=== PATIENT | male | born 1960 | race Caucasian/White ===

== ENCOUNTER → 2018-08-01 08:41 | Outpatient (CLI) | payer MEDICARE, SELFPAY ==
[2018-08-01 09:02] LABS: Blood Urea Nitrogen 15 mg/dL (7-18); Creatinine,Serum 0.92 mg/dL (0.70-1.30); Estimated Glomerular Filt Rate 84 ml/min (>60); GFR (African American) 102 ML/MIN (>60)
--- NOTE | 2018-08-01 09:09 | CT_ITS ---
CT chest w con HISTORY: ITS.REASON: LUNG NODULE ORDERING PHYSICIAN: Baljit Lao MD PATIENT AGE: 57 years COMPARISON: None TECHNIQUE: Axial images obtained following the administration of 75 mL of Isovue 370 . Sagittal, and coronal reformatted images are also generated and reviewed. All CT scans at the facility use one or more dose reduction, viz: automated exposure control, ma/kV adjustment per patient size (including targeted exams where dose is matched to indication, i.e. head), or iterative reconstruction technique. FINDINGS: No mediastinal or hilar mass or adenopathy. There are coronary artery calcifications. Normal heart size. No evidence of pericardial effusion. There is an oval soft tissue density to the right of the right atrium at 1.8 x 0.9 cm consistent with a small pericardial lymph node. Incidental note made of gynecomastia. There is an 8 mm noncalcified nodule in the right lung base posterior laterally which is unchanged from a previous abdomen CT of 03/16/2011. A 4 mm noncalcified nodule present in the left lower lobe laterally unchanged. No new nodules are evident. No evidence of aortic aneurysm or dissection. No evidence of central pulmonary embolus. No lobar consolidation or collapse Upper abdominal images are unremarkable. IMPRESSION: 1. Stable bilateral lower lobe pulmonary nodules. No suspicious nodules apparent 2. Coronary artery disease.
== END ==
PROVIDERS: Family Provider Family Medicine; PCP Family Medicine; Visit Provider Family Medicine
DX: R91.1 Solitary pulmonary nodule (principal)
CPT/HCPCS: 36415; 71260; 82565; 84520; Q9967

== ENCOUNTER → 2018-09-16 19:38 | Outpatient (CLI) | payer MEDICARE, SELFPAY | PROVIDERS: PCP Family Medicine; Visit Provider Nurse Practitioner Family | DX: G47.33 Obstructive sleep apnea (adult) (pediatric) (principal); G47.10 Hypersomnia, unspecified; I10 Essential (primary) hypertension; R06.83 Snoring | CPT/HCPCS: 95811 ==

== ENCOUNTER → 2019-04-20 09:34 | Outpatient (CLI) | payer MEDICARE, SELFPAY ==
[2019-04-20 12:16] LABS: Ferritin 20 ng/mL (8-388)
== END ==
PROVIDERS: Visit Provider Specialist
DX: E83.10 Disorder of iron metabolism, unspecified (principal)
CPT/HCPCS: 36415; 82728

== ENCOUNTER → 2019-08-13 07:01 | Outpatient (CLI) | payer MEDICARE, SELFPAY ==
--- NOTE | 2019-08-13 | CA_ITS ---
APPROVED REPORT Exam: Exercise Treadmill Technologist: Deana Winters Ht: 5 ft 9 in Wt: 234 lbs BSA: 2.21 m2 HR: 53 bpm BP: 153/69 mmHg Rhythm: sinus bradycardia Indications: Chest pain Medical History Medical History: Diabetic ??? Insulin, Hyperlipidemia, HTN Medications: Metoprolol,,,,, Metformin,,,,, Gabapentin,,,,, Mirapex,,,,, Glimepiride,,,,, Lasix,,,,, Lipitor,,,,, PaXIL,,,,, Prevacid,,,,, SuLindar,,,,, Allergies: Morphine,Tolmetin Cardiac Risk Factors: HTN, Hyperlipidemia, Diabetes (insulin), FHX of CAD Stress Test Details Test: Yoana HR Resting HR: 64 bpm Max Heart Rate (APMHR): 160 bpm Max HR Achieved: 125 bpm Target HR (85% APMHR): 136 bpm % of APMHR: 78 Recovery HR: 103 bpm BP Resting BP: 153.0/69.0 mmHg Max BP: 192.0/75.0 mmHg Recovery BP: 178.0/76.0 mmHg ECG Resting ECG: sinus bradycardia Clinical Exercise duration: 09:30 min Highest Stage Achieved: Exercise capacity: 10.1 METs Stress ECG Conclusion PATIENT EXERCISED 9:30 ON YOANA PROTOCOL WITH A MAX HEART RATE OF 125 BPM WHICH IS 78% OF PM FOR AGE. MAX BP 192/75. METS = 10.1. TEST STOPPED DUE TO SOA AND FATIGUE. CHEST HEAVINESS CONSISTENT WITH CLASSIC ANGINA DURING EXERCISE. NO ARRHYTHMIAS/ECTOPY. 1.5-[address] DEPRESSION ANTERIORLY AND 1MM INFERIORLY. EXERCISE INDUCED ANGINA AND ISCHEMIC EKG CHANGES. MYOVIEW IMAGES REPORTED SEPARATELY. Electronically signed by : Tony Almendarez, 08/13/2019 16:22:21
--- NOTE | 2019-08-13 07:08 | NM_ITS ---
APPROVED REPORT Exam: Nuclear Stress Test Indication: chest pain Patient Location: Outpatient Stress Tech: Deana Winters ME Tech:GAVINO Travis RT(R)(N) Ht: 5 ft 9 in Wt: 234 lbs HR: 53 bpm BP: 153/69 mmHg BSA: 2.21 m2 BMI: 34.5 History: chest pain Procedure: Patient exercised on Judd protocol 9:30 minutes and sec, resting heart rate 53 bpm, resting blood pressure 153/69 mmHg, with exercise maximum heart rate achived was 125 bpm which is 78 % of the maximum predicted heart rate and blood pressure was 192/75 mmHg. Test was stopped due to Chest heaviness consistent with angina relieved with rest.. Patient has Good exercise capacity, achieved 10.1 METs of workload on treadmill, the blood pressure response to exercise was Adequate.. Electrocardiogram Resting electric cardiogram shows sinus rhythm, with exercise there is [address] segment depression noted from the baseline EKG. The EKG portion of the exercise Myoview is positive for ischemia. Cardiac Stress and Resting SPECT Images: Cardiac Stress and Resting SPECT images were obtained using technetium 99m Myoview 30.4 mCi stress and 10.04 mCi at rest. Gated SPECT with analysis of segmental wall motion and calculation of the ejection fraction also done. Cardiac stress and resting SPECT images showed reversible ischemia involving the apical and anteroseptal wall, computer derived ejection fraction is over 65% with no regional wall motion abnormality, right ventricle is normal size and contractility. Conclusion: 1. The EKG portion of the exercise Myoview is positive for ischemia, patient has good exercise capacity achieved 10.1 mets of workload on treadmill, the blood pressure response to exercise was adequate, test was stopped due to chest heaviness consistent with angina. 2. Scintigraphic evidence of mild reversible ischemia involving the apex and anteroseptal wall, computer derived ejection fraction is over 65% with no regional wall motion abnormality, right ventricle is normal size and contractility. 3. Abnormal exercise Myoview study. Electronically signed by : Tony Almendarez, 08/13/2019 16:21:41
--- NOTE | 2019-08-13 07:52 | CA_ITS ---
APPROVED REPORT EXAM: Comprehensive 2D, Doppler, and color-flow Echocardiogram Floor Renovator: Tita Pickard RDCS Ht: 5 ft 9 in Wt: 246lbs BSA: 2.26 BP: 131/57 mmHg Indications: Chest Pain 2D Dimensions LVOT 1.90 cm (M/F) 1.5-2.5 M-Mode Dimensions RVDd 2.20 cm (0.9-2.6) LA Diam 3.10 cm (1.9-4.0) LVDd 5.60 cm (3.5-5.7) Ao Diam 4.10 cm (2.0-3.7) LVDs 3.10 cm (3.5-5.7) AV Cusp 2.10 cm (1.5-2.6) IVSd 0.80 cm (0.6-1.1) PWd 1.10 cm (0.6-1.1) EF (Teich) 75.40% FS 44.60% EDV (Teich) 154.00 mL ESV (Teich) 37.90 mL LV Diastology E/A Ratio 1.1 MED E' 5.65 (< 7 cm/sec) E'/MED E' Ratio 15.30 (>14) LAT E' 13.40 (<10 cm/sec) E/LAT E' Ratio 6.40 (>14) Mitral Valve MV E Max Clayton. 86.40 (40-130 cm/s) MV A Velocity 79.00 (40-130 cm/s) E/A Ratio 1.10 Left Ventricle Left atrium is normal size, left ventricle is normal size, there is no concentric left ventricular hypertrophy, visually estimated ejection fraction 55% with no regional wall motion abnormality, diastolic parameters are within normal range. Right Ventricle Right atrium and right ventricular normal size and contractility. Aortic Valve Aortic valve is minimally thickened and fibrosed. There is no aortic stenosis aortic insufficiency. Mitral Valve Mitral valve is grossly normal, there is mild mitral regurgitation. Tricuspid Valve Tricuspid valve is grossly normal, there is mild tricuspid regurgitation. Pulmonic Valve Pulmonic valve is poorly visualized. Great Vessels Aortic root is normal size. Pericardium No significant pericardial effusion noted. Conclusion 1. Normal left ventricular size, preserved left ventricular systolic function, visually estimated ejection fraction 55% with no regional wall motion abnormality, diastolic parameters are within normal range. 2. Mild mitral and tricuspid regurgitation 3. No significant pericardial effusion noted. Electronically signed by : Tony Almendarez, 08/13/2019 15:42:45
--- NOTE | 2019-08-13 09:28 | HMH.ITSHM ---
Current Home Medications as stated by this patient Jose Newell JR or inside account representative. [] metoprolol pazil mirapex lipitor metformin
--- NOTE | 2019-08-13 09:41 | US_ITS ---
PROCEDURE: US BREAST LT COMPLETE CLINICAL INDICATION: LT BREAST PAIN COMPARISON: No exams were available for comparison FINDINGS: No cystic or solid lesions evident IMPRESSION: BI-RAD Category: 1 Negative FOLLOW-UP: Follow-up suggested as clinically warranted Dictated by: Geoffrey Escobedo MD 08/21/2019 09:34 Electronically signed by Geoffrey Escobedo MD in [place] 08/21/2019 09:34
== END ==
PROVIDERS: PCP Family Medicine; Visit Provider Nurse Practitioner
DX: R07.9 Chest pain, unspecified (principal); N64.4 Mastodynia
CPT/HCPCS: 76641; 78452; 93017; 93306; A9502

== ENCOUNTER 2019-08-25 09:47 | Outpatient (RCR) | payer MEDICARE, SELFPAY | END 2019-08-25 09:50 | disposition home or self-care (01) | LOC: PT 09:47 | PROVIDERS: Visit Provider Internal Medicine | DX: Z95.5 Presence of coronary angioplasty implant and graft (principal) | CPT/HCPCS: 93798 ==

== ENCOUNTER → 2019-08-25 11:13 | Outpatient (CLI) | payer MEDICARE, SELFPAY ==
[2019-08-25 11:37] LABS: Basophils # 0.1 K/mm3 (0-0.2); Basophils % 1.2 % (0.1-2.0); Eosinophils # 0.4 K/mm3 (0.0-0.4); Hematocrit 46.5 % (42.0-52.0); Lymphocytes # 1.9 K/mm3 (0.7-4.5); Lymphocytes % 25.9 % (10-50); Mean Corpuscular HGB Conc 32.2 g/dL (31.8-35.4); Mean Corpuscular Hemoglobin 27.6 pg (27.0-31.2); Mean Corpuscular Volume 85.7 fl (80-94); Mean Platelet Volume 8.5 fl (7.4-10.4); Monocytes # 0.5 K/mm3 (0.1-1.0); Monocytes % 6.5 % (1.7-9.3); Neutrophils # 4.4 K/mm3 (1.8-7.8); Neutrophils % 61.4 % (37.0-80.0); Platelet Count 214 K/mm3 (142-424); Red Blood Count 5.42 M/mm3 (4.60-6.20); Red Cell Distribution Width 13.9 % (11.5-17.5); White Blood Count 7.2 K/mm3 (4.8-10.8)
[2019-08-25 16:04] LABS: Blood Urea Nitrogen 15 mg/dL (7-18); Carbon Dioxide 27 mmol/L (21.0-32.0); Chloride 104 mmol/L (98-107); Creatinine,Serum 0.83 mg/dL (0.70-1.30); Estimated Glomerular Filt Rate 95 ml/min (>60); GFR (African American) 114 ML/MIN (>60); Glucose 115 mg/dL (74-106); Sodium 143 mmol/L (136-145)
== END ==
PROVIDERS: Visit Provider Internal Medicine
DX: Z95.5 Presence of coronary angioplasty implant and graft (principal); I25.10 Atherosclerotic heart disease of native coronary artery without angina pectoris
CPT/HCPCS: 36415; 80048; 85025

== ENCOUNTER → 2020-04-14 13:28 | Outpatient (CLI) | payer MEDICARE, SELFPAY ==
--- NOTE | 2020-04-14 13:36 | MR_ITS ---
PROCEDURE: MR LUMBAR SPINE WO CON CLINICAL INDICATION: LEFT LUMBAR RADICULOPATHY Left-sided low back pain with left leg pain COMPARISON: No exams were available for comparison TECHNIQUE: Standard multiplanar multiecho sequences are performed without contrast. 3-D MIP and myelographic images are also rendered and reviewed FINDINGS: There is normal alignment with mild kyphosis at the thoracolumbar spine. The spinal cord ends at the L1-L2 level. T11-T12: Degenerative disc disease with minimal bulging disc. There is mild wedge changes of T12 which appears chronic T12-L1: Mild disc desiccation L1-L2: Minimal bulging disc. L2-L3: Degenerative disc disease with bulging disc along with facet and ligamentum hypertrophy. There is a a small central broad-based disc protrusion with facet and ligamentum hypertrophy with resultant canal stenosis, bilateral lateral recess narrowing, and bilateral foraminal narrowing L3-L4: Degenerative disc disease with bulging disc along with a broad-based central/left paracentral disc protrusion which is causing moderate to severe right-sided lateral recess and foraminal narrowing. There may have been a small laminectomy on the left at this level L4-5: Degenerative disc disease with bulging disc with small central disc protrusion. There is facet ligamentum hypertrophy which is more prominent on the left with moderate left lateral recess and moderate to severe left-sided foraminal narrowing. L5-S1: Degenerative disc disease with bulging disc with facet and ligamentum hypertrophy. Prior right laminectomy. There is bulging disc which is eccentric toward the left with moderate right foraminal narrowing and moderate to severe left foraminal narrowing IMPRESSION: Abnormal MRI of the lumbar spine. There is multilevel lumbar spondylosis with degenerative disc disease, bulging disc, disc protrusions, facet and ligamentum hypertrophy with canal stenosis, varying levels of lateral recess narrowing, and varying levels of foraminal narrowing. Please see above for detailed description at each level Dictated by: Geoffrey Escobedo MD 04/16/2020 12:41 Electronically signed by Geoffrey Escobedo MD in [place] 04/16/2020 12:41
== END ==
LOC: RAD 13:28
PROVIDERS: PCP Family Medicine; Visit Provider Family Medicine
DX: M54.16 Radiculopathy, lumbar region (principal)
CPT/HCPCS: 72148; 76376

== ENCOUNTER 2020-04-19 00:59 | Emergency (ER) | payer MEDICARE, SELFPAY ==
--- NOTE | 2020-04-19 01:12 | ECG_ITS ---
APPROVED REPORT Exam: Resting ECG HR:77 bpm ECG Measurements Heart Rate 77 AXES OK 154 P 66 QRSd 90 QRS 71 QT 408 T 66 QTc 461 <Conclusion> Normal sinus rhythm Normal ECG Electronically signed by : Tenzin Joshua, 04/20/2020 17:09:35
[2020-04-19 01:14] VITALS: BP 130/79; PULSE 80; RESP 15; TEMP 36.6; O2SAT 95; BMI 34.5
[2020-04-19 01:29] LABS: Basophils # 0.1 K/mm3 (0-0.2); Basophils % 1.2 % (0.1-2.0); Eosinophils # 0.4 K/mm3 (0.0-0.4); Eosinophils % 3.7 % (0.1-12.0); Hematocrit 47.5 % (42.0-52.0); Lymphocytes % 20.4 % (10-50); Mean Corpuscular HGB Conc 33.8 g/dL (31.8-35.4); Mean Corpuscular Hemoglobin 28.9 pg (27.0-31.2); Mean Corpuscular Volume 85.5 fl (80-94); Mean Platelet Volume 7.7 fl (7.4-10.4); Monocytes # 0.5 K/mm3 (0.1-1.0); Monocytes % 5.5 % (1.7-9.3); Neutrophils # 6.7 K/mm3 (1.8-7.8); Neutrophils % 69.1 % (37.0-80.0); Platelet Count 195 K/mm3 (142-424); Red Blood Count 5.55 M/mm3 (4.60-6.20); Red Cell Distribution Width 14.1 % (11.5-17.5); White Blood Count 9.7 K/mm3 (4.8-10.8)
--- NOTE | 2020-04-19 01:34 | HMH.EDUPEXT ---
ED Disposition Clinical Impression: Upper extremity pain Qualifiers: Laterality: left Qualified Code(s): M79.602 - Pain in left arm Disposition: Home, Self-Care Condition on Discharge: Good Instructions: DI for Chronic Pain -- Adult Additional Instructions: call pcp today and recheck if needed Referrals: Baljit Lao MD [Primary Care Provider] - - Critical Care Critical Care Time: No Attestation: On 04/19/20, the high probability of a clinically significant, sudden or life threatening deterioration of the following system(s) required my full and direct attention, intervention and personal management. The time I documented below is in addition to time spent performing reported procedures but includes the following listed in this critical care notation. Medical Decision Making - Medical Records Medical records reviewed: Yes: I reviewed the patient's medical records. - Jori Inquiry Pt receiving controlled substance: No Vital Signs: 04/19/20 01:14 04/19/20 02:00 04/19/20 02:30 Temperature 97.9 F 97.9 F Temperature Source Oral Oral Pulse Rate [Right Brachial] 80 73 63 Respiratory Rate 15 15 14 Blood Pressure [Right Arm] 130/79 125/71 139/80 Blood Pressure Mean [Right Arm] 96 89 99 Blood Pressure Source [Right Arm] Automatic Cuff Automatic Cuff Automatic Cuff Blood Pressure Position [Right Arm] Sitting Sitting Sitting 02 Sat by Pulse Oximetry 95 95 94 L Oxygen Delivery Method Room Air Room Air Room Air 04/19/20 03:00 Temperature Temperature Source Pulse Rate [Right Brachial] 67 Respiratory Rate 14 Blood Pressure [Right Arm] 126/75 Blood Pressure Mean [Right Arm] 92 Blood Pressure Source [Right Arm] Automatic Cuff Blood Pressure Position [Right Arm] Sitting 02 Sat by Pulse Oximetry 95 Oxygen Delivery Method Room Air - Lab Data Lab results reviewed: Yes: I reviewed the patient's lab results. Lab Results 04/19/20 01:18: WBC 9.7, RBC 5.55, Hgb 16.0, Hct 47.5, MCV 85.5, MCH 28.9, MCHC 33.8, RDW 14.1, Plt Count 195, MPV 7.7, Neut % (Auto) 69.1, Lymph % (Auto) 20.4, Clare % (Auto) 5.5, Eos % (Auto) 3.7, Baso % (Auto) 1.2, Neut # (Auto) 6.7, Lymph # (Auto) 2.0, Clare # (Auto) 0.5, Eos # (Auto) 0.4, Baso # (Auto) 0.1 04/19/20 01:18: Sodium 138, Potassium 4.4, Chloride 99, Carbon Dioxide 29, Anion Gap 14.4, BUN 13, Creatinine 0.90, Estimated Creat Clear 116, Estimated GFR 86, Est GFR ( Amer) 104, Glucose 162 H, Calcium 9.8, Total Bilirubin 0.5, AST 38, ALT 27, Alkaline Phosphatase 108, Troponin I < 0.01, Total Protein 8.0, Albumin 4.8, Globulin 3.2, Albumin/Globulin Ratio 1.5 Result diagrams: 04/19/20 01:18 04/19/20 01:18 Orders (Tests/Meds): ED MEDICATIONS Discontinued Medications Generic Name Dose Route Start Last Admin Trade Name Freq PRN Reason Stop Dose Admin Ketorolac Tromethamine 15 mg 04/19/20 02:14 04/19/20 02:24 Toradol 30mg/Ml Vial IV 04/19/20 02:15 15 mg ONCE ONE Administration Methylprednisolone Sodium Succinate 125 mg 04/19/20 01:35 04/19/20 01:41 Solu-Medrol 125mg/2ml Vial IV 04/19/20 01:36 125 mg ONCE ONE Administration ORDERS Category Date Time Status Troponin I Q3H Lab 04/19/20 04:30 Ordered Troponin I Q3H Lab 04/19/20 07:30 Ordered - ECG Data Tracing #1 Normal Sinus Rhythm: Yes Ischemic changes: non-specific ST-T wave changes Upper Extremity HPI - General Chief Complaint: Extremity Injury, Upper Stated Complaint: Numbness in Left Arm Time Seen by Provider: 04/19/20 01:25 Mode of Arrival: Ambulatory Source of Information: Patient, Spouse, Medical Record Limitations: No Limitations Description of Symptoms (Recalled from ER Triage Doc. by RN): Patient reports right arm pain with some numbness that started saturday. Patient denies any known injury but reports he did have a bad sun burn on that arm that blistered. - History of Present Illness HPI narrative: lt elbow pain with rad to forearm with no rash
[2020-04-19 01:41] LABS: Alanine Aminotransferase 27 U/L (12-78); Albumin Level 4.8 g/dl (3.5-5.0); Albumin/Globulin Ratio 1.5 (1.1-1.8); Alkaline Phosphatase 108 U/L (38-126); Anion Gap 14.4 mEq/L (5-15); Aspartate Amino Transferase 38 U/L (17-59); Bilirubin,Total 0.5 mg/dl (0.2-1.3); Blood Urea Nitrogen 13 mg/dl (9-20); Calcium 9.8 mg/dl (8.4-10.2); Carbon Dioxide 29 mmol/L (22.0-30.0); Chloride 99 mmol/L (98-107); Creatinine Clearance Estimated 116 mL/min (50-200); Estimated Glomerular Filt Rate 86 ml/min (>60); GFR (African American) 104 ML/MIN (>60); Globulin 3.2 g/dL (1.3-3.2); Glucose 162 mg/dl (74-100); Potassium 4.4 mmoL/L (3.5-5.1); Sodium 138 mmol/L (136-145)
[2020-04-19 02:00] VITALS: BP 125/71; PULSE 73; RESP 15; TEMP 36.6; O2SAT 95
[2020-04-19 02:23] LABS: Troponin I < 0.01 ng/ml (0.00-0.034)
[2020-04-19 02:30] VITALS: BP 139/80; PULSE 63; RESP 14; O2SAT 94
[2020-04-19 03:00] VITALS: BP 126/75; PULSE 67; RESP 14; O2SAT 95
[2020-04-19 03:35] VITALS: BP 125/74; PULSE 65; RESP 15; TEMP 36.6; O2SAT 93
== END 2020-04-19 03:53 | disposition home or self-care (01) ==
PROVIDERS: Emergency Provider Emergency Medicine; PCP Family Medicine
DX: M79.602 Pain in left arm (principal); E78.5 Hyperlipidemia, unspecified; I10 Essential (primary) hypertension; F33.1 Major depressive disorder, recurrent, moderate; Z87.891 Personal history of nicotine dependence; Z82.49 Family history of ischemic heart disease and other diseases of the circulatory system; Z86.718 Personal history of other venous thrombosis and embolism; Z88.5 Allergy status to narcotic agent; Z79.899 Other long term (current) drug therapy
CPT/HCPCS: 80053; 84484; 85025; 93005; 96374; 96375; 99283

== ENCOUNTER → 2020-07-18 09:51 | Outpatient (POV) | payer MEDICARE, SELFPAY ==
[2020-07-18 09:59] VITALS: BP 135/88; PULSE 62; RESP 18; TEMP 36.7; O2SAT 98; BMI 34.9
--- NOTE | 2020-07-18 10:38 | HMH.PMCON ---
Assessment and Plan (1) Postlaminectomy syndrome Current visit: Yes Status: Chronic Category: Medical Code(s): M96.1 - Postlaminectomy syndrome, not elsewhere classified (2) Degenerative joint disease (DJD) of lumbar spine Current visit: Yes Status: Chronic Qualifiers: Spinal osteoarthritis complication: with radiculopathy Qualified Code(s): M47.26 - Other spondylosis with radiculopathy, lumbar region Category: Medical Code(s): M47.816 - Spondylosis without myelopathy or radiculopathy, lumbar region - Assessment and plan all Dx Assessment and Plan for all problems:: We will get the patient a back brace to help with stability and functionality until he is seen by his surgeon. At this time any kind of intervention that we do may delay his surgery. We do not want to do that moving forward we will have the patient is an established patient if he needs any interventional care post surgery we will be happy to provide. Dr. Novak has reviewed this note and agrees with this plan of care. This note was dictated using voice recognition software and may contain errors or omissions HPI - Data of Consult Consult date: 07/18/20 Requesting Physician: Hannah Piña APRN Primary Care Provider: Baljit Lao MD - Consult Narrative Reason for consult: Back pain, left leg pain History of present illness: Mr. Newell is a 59 year old male presents today for consultation regards to his left leg and back pain. Patient is on the list to have surgery for his low back pain he is currently doing his physical and blood work to be cleared for this. Patient has had 4 additional lumbar spine surgeries. Patient has had epidural injections in the past with good relief however at this time he is on Brilinta. Patient and I discussed we could move forward with epidural injections however it may delay his surgery. Patient does not want to do that at this time. Patient rates his pain today at 8 out of 10. He is currently on [place] from his surgeon. CC: Hannah Piña APRN [facility] History I have reviewed the patient's past medical history: Yes Medical History: Reports:: Deep Vein Thrombosis, Depression, Diabetes Mellitus Type 2, Hyperlipidemia, Hypertension Denies:: Cancer, Diabetes Mellitus Type 1, MRSA, Seizures *Have you ever received a pneumonia vaccine?: Yes *Have you received a flu vaccine this season?: Yes Other Medical History: Reports: Arthritis, Cataracts, Other Other Surgeries: Yes: Cardiac Catheterization, Colonoscopy, Coronary Stent Amputation: No - *Social History Smoking Status: Unknown if ever smoked Tobacco Type: cigarettes # Packs/Day (cigarettes): 1 #Yrs smoked (if former smoker): 23 Alcohol Intake: never Alcohol Intake Frequency:: other Substance Use Type: denies use *Occupational Status:: retired Housing: house Household Members: other *Travel in the last 8 weeks: None - Psychiatric History Pschychiatric History:: Reports:: Depression Family Hx:: Coronary Artery Disease Review of Systems - Review of Systems ROS General: no recent weight change, no fever, no sleep disturbances Respiratory: no cough, no shortness of air, no recurring pulmonary infections Cardiovascular/Peripheral Vascular: No chest pain, No palpitations, no edema, no shortness of breath. Gastrointestinal: no new onset incontinence, normal bowel movements reported Genitourinary: no new onset incontinence Musculoskeletal: Back pain, left leg pain Psychiatric: normal mood/ affect Neurological: [denies new onset weakness in extremities], [denies new onset balance issues] Meds Home Medications Medication Instructions Recorded Confirmed Type albuterol sulfate 90 mcg/actuation INHALATION 75 Days g 08/12/18 04/27/20 History aerosol inhaler atorvastatin 80 mg tablet 80 mg PO DAILY 90 Days #90 tab 08/12/18 04/27/20 History glimepiride 4 mg tablet 8 mg PO DAILY 90 Days #180 tab 08/12/18 04/27/20 History
[2020-07-18 11:14] LABS: Basophils # 0.1 K/mm3 (0-0.2); Eosinophils # 0.4 K/mm3 (0.0-0.4); Eosinophils % 4.2 % (0.1-12.0); Hematocrit 46.9 % (42.0-52.0); Hemoglobin 15.7 g/dL (14.1-18.0); Lymphocytes # 2.4 K/mm3 (0.7-4.5); Lymphocytes % 25.9 % (10-50); Mean Corpuscular HGB Conc 33.6 g/dL (31.8-35.4); Mean Corpuscular Hemoglobin 28.9 pg (27.0-31.2); Mean Corpuscular Volume 85.9 fl (80-94); Mean Platelet Volume 8.2 fl (7.4-10.4); Monocytes # 0.5 K/mm3 (0.1-1.0); Monocytes % 5.5 % (1.7-9.3); Neutrophils % 63.5 % (37.0-80.0); Platelet Count 201 K/mm3 (142-424); Red Blood Count 5.45 M/mm3 (4.60-6.20); Red Cell Distribution Width 13.8 % (11.5-17.5); White Blood Count 9.4 K/mm3 (4.8-10.8)
[2020-07-18 11:42] LABS: Chloride 99 mmol/L (98-107)
[2020-07-18 11:43] LABS: Albumin Level 4.1 g/dl (3.5-5.0); Potassium 4.6 mmoL/L (3.5-5.1); Sodium 135 mmol/L (136-145)
[2020-07-18 11:45] LABS: Blood Urea Nitrogen 20 mg/dl (9-20); Creatinine Clearance Estimated 114 mL/min (50-200); Estimated Glomerular Filt Rate 98 ml/min (>60); GFR (African American) 119 ML/MIN (>60)
[2020-07-18 11:46] LABS: Anion Gap 11.6 mEq/L (5-15); Calcium 9.3 mg/dl (8.4-10.2); Carbon Dioxide 29 mmol/L (22.0-30.0); Glucose 87 mg/dl (74-100); Phosphorous 4.4 mg/dl (2.5-4.5)
== END ==
PROVIDERS: PCP Family Medicine; Visit Provider Neurological Surgery
DX: M96.1 Postlaminectomy syndrome, not elsewhere classified (principal); M47.26 Other spondylosis with radiculopathy, lumbar region; M51.26 Other intervertebral disc displacement, lumbar region
CPT/HCPCS: 36415; 80069; 85025; 99202

== ENCOUNTER 2021-05-15 09:23 | Emergency (ER) | payer MEDICARE, SELFPAY ==
[2021-05-15 09:23] VITALS: BP 120/71; PULSE 85; RESP 18; TEMP 37; O2SAT 97; BMI 34.7
[2021-05-15 09:38] VITALS: BMI 34.7
--- NOTE | 2021-05-15 09:43 | HMH.EDFEV ---
ED Disposition Clinical Impression: Bronchitis Disposition: Home, Self-Care Condition on Discharge: Good Additional Instructions: Take [id number] Tylenol and/or ibuprofen as needed for aches and pains and fever. Your COVID-19 test is still pending. If your tests turns out to be positive for COVID-19 we will call you. If you do not receive a call you test was negative. Follow-up with your primary care physician in about 3 to 4 days if not better. Return to the emergency department if you feel any worse. Referrals: Baljit Lao MD [Primary Care Provider] - - Critical Care Critical Care Time: No Attestation: On 05/15/21, the high probability of a clinically significant, sudden or life threatening deterioration of the following system(s) required my full and direct attention, intervention and personal management. The time I documented below is in addition to time spent performing reported procedures but includes the following listed in this critical care notation. Medical Decision Making - Medical Records Medical records reviewed: Yes: I reviewed the patient's medical records. - Jori Inquiry Pt receiving controlled substance: No Vital Signs: 05/15/21 09:23 05/15/21 10:56 05/15/21 11:00 Temperature 98.6 F 98.1 F Temperature Source Oral Pulse Rate 53 L 51 L Pulse Rate [Right] 85 Respiratory Rate 18 18 18 Blood Pressure 108/58 L 115/71 Blood Pressure [Right Arm] 120/71 Blood Pressure Mean [Right Arm] 87 Blood Pressure Source Manual Cuff/ Auscultation 02 Sat by Pulse Oximetry 97 97 Oxygen Delivery Method Room Air Room Air Room Air - Radiology Data #1 Image(s): Chest Image Reviewed: Yes I reviewed the patient's radiology results, Yes I have reviewed radiologist's interpretation Preliminary Findings: Normal/NAD Medical Decision Narrative: The patient presents to the emergency department complaining of productive cough that has lasted about 1 week. He is not immunized against COVID-19. He denies any severe shortness of breath. His vital signs are unremarkable. His chest x-ray does not show any acute infiltrates. On physical examination the patient is afebrile with normal oxygen saturations. A COVID-19 test has been performed and the results are pending. I feel that the patient can be safely discharged home in stable condition. The patient's work-up in the emergency department not reveal any life-threatening or dangerous conditions. Fever HPI - General Chief Complaint: Fever Stated Complaint: fever, cough, sinus pressure Time Seen by Provider: 05/15/21 09:44 Mode of Arrival: Ambulatory - History of Present Illness HPI Narrative: The patient presents to the emergency department complaining of productive cough that began approximately 1 week ago. He also complains of some intermittent fever. The fever is responsive to antipyretics. Patient states that his has similar symptoms which began yesterday. He also denies being immunized against COVID-19. complaint: fever Onset (ago): day(s) (7) Maximum Temperature: 102 F Temperature Source: oral Context: sick contacts Associated symptoms: chills, myalgias Relieving factors: nothing, acetaminophen Exacerbating factors: nothing - Related Data Home Medications Medication Instructions Recorded Confirmed glimepiride 4 mg tablet 8 mg PO DAILY 90 Days #180 tab 08/12/18 05/03/21 lansoprazole 30 mg capsule,delayed 30 mg PO DAILY 90 Days #90 cap 08/12/18 05/03/21 release metformin 1,000 mg tablet 1,000 mg PO BID 90 Days #180 tab 08/12/18 05/03/21 paroxetine HCl 40 mg tablet 40 mg PO DAILY 90 Days #90 tab 08/12/18 05/03/21 sulindac 200 mg tablet 200 mg PO BID 90 Days #180 tab 08/12/18 05/03/21 aspirin 81 mg tablet,delayed 81 mg PO DAILY 08/17/19 05/03/21 release tamsulosin 0.4 mg capsule mg PO DAILY cap 04/27/20 05/03/21 albuterol sulfate 90 mcg/actuation 2 puff INHALATION PRN 75 Days g 09/19/20
--- NOTE | 2021-05-15 09:49 | XR_ITS ---
PROCEDURE: XR CHEST 2V CLINICAL HISTORY: productive cough COMPARISON: CR CXR CHEST(2 VIEWS-NOT PORTABLE) from 05/20/2015 CR CXR CHEST(2 VIEWS-NOT PORTABLE) from 03/22/[address] chest w con from 08/01/2018 FINDINGS: The cardiomediastinal silhouette and pulmonary vascularity are within normal limits. The lungs are clear without infiltrates, suspicious nodules, or pleural effusions. Degenerative changes thoracic spine IMPRESSION: No acute findings. Dictated by: Geoffrey Escobedo MD 05/15/2021 10:26 Geoffrey Escobedo MD in [place] 05/15/2021 10:26
[2021-05-15 10:56] VITALS: BP 108/58; PULSE 53; RESP 18; O2SAT 97
[2021-05-15 11:00] VITALS: BP 115/71; PULSE 51; RESP 18; TEMP 36.7; O2SAT 98
--- NOTE | 2021-05-15 16:45 | PC.NURSE ---
Patient called regarding COVID+ results. Educated on quarantine instructions. Informed if symptoms or breathing gets worse to return to ED.
== END 2021-05-15 11:01 | disposition home or self-care (01) ==
PROVIDERS: Emergency Provider Emergency Medicine; PCP Family Medicine
DX: U07.1 COVID-19 (principal); J20.9 Acute bronchitis, unspecified; I10 Essential (primary) hypertension; J44.9 Chronic obstructive pulmonary disease, unspecified; E11.9 Type 2 diabetes mellitus without complications; E78.5 Hyperlipidemia, unspecified; Z87.891 Personal history of nicotine dependence; Z88.5 Allergy status to narcotic agent; Z79.899 Other long term (current) drug therapy
CPT/HCPCS: 71046; 99281; 99282; U0003

== ENCOUNTER 2021-05-18 08:59 | Outpatient (CLI) | payer MEDICARE, SELFPAY ==
[2021-05-18] VITALS (7 sets, daily range): BP systolic 98–127; BP diastolic 60–78; PULSE 46–53; RESP 16–18; TEMP 36.8; O2SAT 96–98
== END 2021-05-18 11:44 | disposition home or self-care (01) ==
PROVIDERS: PCP Nurse Practitioner; Visit Provider Nurse Practitioner
DX: U07.1 COVID-19 (principal)
CPT/HCPCS: 96365

== ENCOUNTER → 2021-06-20 12:46 | Outpatient (CLI) | payer MEDICARE, SELFPAY | LOC: RT 12:47 | PROVIDERS: PCP Nurse Practitioner; Visit Provider Internal Medicine Pulmonary Disease | DX: R06.00 Dyspnea, unspecified (principal) | CPT/HCPCS: 94060; 94618; 94640; 94726; 94729 ==

== ENCOUNTER → 2021-08-22 14:16 | Outpatient (CLI) | payer MEDICARE, SELFPAY | LOC: RT 14:17 | PROVIDERS: PCP Family Medicine; Visit Provider Specialist | DX: G47.33 Obstructive sleep apnea (adult) (pediatric) (principal); G47.34 Idiopathic sleep related nonobstructive alveolar hypoventilation | CPT/HCPCS: 94618 ==

== ENCOUNTER → 2021-10-31 13:11 | Outpatient (CLI) | payer MEDICARE, SELFPAY ==
[2021-10-31 13:57] LABS: Basophils # 0.1 K/mm3 (0-0.2); Basophils % 1.1 % (0.1-2.0); Eosinophils # 0.4 K/mm3 (0.0-0.4); Eosinophils % 3.5 % (0.1-12.0); Hemoglobin 14.9 g/dL (14.1-18.0); Lymphocytes # 4.5 K/mm3 (0.7-4.5); Lymphocytes % 38.8 % (10-50); Mean Corpuscular Hemoglobin 28.7 pg (27.0-31.2); Mean Corpuscular Volume 92.6 fl (80-94); Mean Platelet Volume 8.2 fl (7.4-10.4); Monocytes # 0.8 K/mm3 (0.1-1.0); Monocytes % 6.7 % (1.7-9.3); Neutrophils # 5.8 K/mm3 (1.8-7.8); Neutrophils % 49.8 % (37.0-80.0); Platelet Count 249 K/mm3 (142-424); Red Blood Count 5.18 M/mm3 (4.60-6.20); Red Cell Distribution Width 14.4 % (11.5-17.5); White Blood Count 11.6 K/mm3 (4.8-10.8)
[2021-11-03 17:08] LABS: D001-IgE D pteronyssinus <0.10 kU/L (Class 0); D002-IgE D farinae <0.10 kU/L (Class 0); E001-IgE Cat Dander <0.10 kU/L (Class 0); E005-IgE Dog Dander <0.10 kU/L (Class 0); E072-IgE Mouse Urine <0.10 kU/L (Class 0); G002-IgE Bermuda Grass 0.96 kU/L (Class II); G006-IgE Timothy Grass 0.86 kU/L (Class II); I006-IgE Cockroach, German 0.28 kU/L (Class 0/I); Immunoglobulin E, Total 51 IU/mL (6-495); M001-IgE Penicillium chrysogen <0.10 kU/L (Class 0); M002-IgE Cladosporium herbarum <0.10 kU/L (Class 0); M003-IgE Aspergillus fumigatus <0.10 kU/L (Class 0); M006-IgE Alternaria alternata <0.10 kU/L (Class 0); T003-IgE Common Silver Birch 0.23 kU/L (Class 0/I); T006-IgE Cedar, Mountain 0.32 kU/L (Class I); T007-IgE Oak, White 0.51 kU/L (Class I); T008-IgE Elm, American 0.52 kU/L (Class I); T010-IgE Walnut 0.58 kU/L (Class II); T011-IgE Maple Leaf Sycamore 0.61 kU/L (Class II); T014-IgE Cottonwood 0.38 kU/L (Class I); T015-IgE Ash, White 0.65 kU/L (Class II); T022-IgE Pecan, Hickory 0.39 kU/L (Class I); T070-IgE White Mulberry 0.29 kU/L (Class 0/I); W001-IgE Ragweed, Short 0.87 kU/L (Class II); W011-IgE Thistle, Russian 1.45 kU/L (Class III); W018-IgE Sheep Sorrel 1.42 kU/L (Class III)
== END ==
LOC: LAB 13:13
PROVIDERS: Visit Provider Internal Medicine Pulmonary Disease
DX: J45.909 Unspecified asthma, uncomplicated (principal); G47.33 Obstructive sleep apnea (adult) (pediatric)
CPT/HCPCS: 82785; 85025; 86003; 94762

== ENCOUNTER → 2021-11-08 09:24 | Outpatient (CLI) | payer MEDICARE, SELFPAY ==
--- NOTE | 2021-11-08 09:27 | CA_ITS ---
APPROVED REPORT EXAM: Comprehensive 2D, Doppler, and color-flow Echocardiogram Assisted Living Director: Natalya Parks RVT Ht: 5 ft 9 in Wt: 239lbs BSA: 2.23 BP: 126/67 mmHg Indications: CAD,STENT,COPD,EX SMOKER,DM,HTN,HLD TDS 2D Dimensions LVOT 2.22 cm (M/F) 1.5-2.5 LA Volume 17.80 mL LA Volume Index 7.98 mL/m2 (M/F) 16-34 M-Mode Dimensions RVDd 2.77 cm (0.9-2.6) LA Diam 3.54 cm (1.9-4.0) LVDd 5.37 cm (3.5-5.7) Ao Diam 3.74 cm (2.0-3.7) LVDs 3.49 cm (3.5-5.7) IVSd 0.67 cm (0.6-1.1) PWd 1.21 cm (0.6-1.1) EF (Teich) 63.80% FS 35.00% EDV (Teich) 139.50 mL TAPSE 2.34 (<1.7) ESV (Teich) 50.50 mL LV Diastology E Decel Time 253.00 (160-240 msec) E/A Ratio 1.0 MED E' 6.20 (< 7 cm/sec) E'/MED E' Ratio 11.27 (>14) LAT E' 11.80 (<10 cm/sec) E/LAT E' Ratio 5.92 (>14) Mitral Valve MV E Max Clayton. 70.00 (40-130 cm/s) MV A Velocity 69.00 (40-130 cm/s) E/A Ratio 1.01 MV Decel. Time 253.00 (160-240 ms) MV PHT 74.00 ms Pulmonary Valve PV Peak Velocity 88.00 (50-150 cm/s) Tricuspid Valve TR P. Velocity 111.00 cm/s RAP Estimate 10.00 mmHg RVSP 14.90 mmHg Left Ventricle Technically difficult study because of the patient factors and poor acoustic windows. Left atrium is mildly enlarged, left ventricle is normal size, mild concentric left ventricular hypertrophy, visually estimated ejection fraction 55% with no regional wall motion abnormality, grade 1 diastolic dysfunction seen without tissue Doppler evidence of raise left atrial pressure. Right Ventricle Right atrium and right ventricle are mildly enlarged with normal contractility. Aortic Valve Aortic valve is minimally thickened and fibrosed, there is no aortic stenosis or aortic insufficiency. Mitral Valve Mitral valve grossly normal, there is trace mitral regurgitation. Tricuspid Valve Tricuspid valve grossly normal, there is trace tricuspid regurgitation, tricuspid regurgitation jet velocity is inadequate for calculation of the right ventricular systolic pressure. Pulmonic Valve Pulmonic valve is poorly visualized. Great Vessels Aortic root is normal size. Inferior vena cava is normal size with normal inspiratory collapse. Pericardium No significant pericardial effusion noted. Conclusion 1. Mild biatrial enlargement, normal left ventricular size, mild concentric left ventricular hypertrophy, visually estimated ejection fraction 55% with no regional wall motion abnormality, grade 1 diastolic dysfunction seen without tissue Doppler evidence of raise left atrial pressure. 2. Mildly enlarged right ventricle with normal contractility. 3. Trace mitral and tricuspid regurgitation 4. No significant pericardial effusion. 5. Inferior vena cava is normal size with normal inspiratory collapse. Electronically signed by : Tony Almendarez MD 11/08/2021 11:46:54
== END ==
LOC: RT 09:27
PROVIDERS: PCP Family Medicine; Visit Provider Urology
DX: E11.9 Type 2 diabetes mellitus without complications (principal); E78.2 Mixed hyperlipidemia; I10 Essential (primary) hypertension; I25.10 Atherosclerotic heart disease of native coronary artery without angina pectoris; Z86.718 Personal history of other venous thrombosis and embolism; Z95.5 Presence of coronary angioplasty implant and graft; Z79.84 Long term (current) use of oral hypoglycemic drugs
CPT/HCPCS: 93306

== ENCOUNTER → 2021-12-04 10:26 | Outpatient (CLI) | payer MEDICARE, SELFPAY | PROVIDERS: PCP Family Medicine; Visit Provider Specialist | DX: Z01.812 Encounter for preprocedural laboratory examination (principal); Z11.52 Encounter for screening for COVID-19 | CPT/HCPCS: C9803; U0003; U0005 ==

== ENCOUNTER → 2021-12-06 20:11 | Outpatient (CLI) | payer MEDICARE, SELFPAY | LOC: SL 20:12 | PROVIDERS: PCP Family Medicine; Visit Provider Specialist | DX: G47.33 Obstructive sleep apnea (adult) (pediatric) (principal); R09.02 Hypoxemia | CPT/HCPCS: 95811 ==

== ENCOUNTER → 2022-02-15 13:13 | Outpatient (CLI) | payer MEDICARE, SELFPAY ==
[2022-02-15 16:19] LABS: Prostate Specific Ag Screen 1.8 ng/ml (0.0-4.0)
== END ==
PROVIDERS: Visit Provider Family Medicine
DX: Z12.5 Encounter for screening for malignant neoplasm of prostate (principal)
CPT/HCPCS: 36415; G0103

== ENCOUNTER → 2022-07-11 07:04 | Outpatient (CLI) | payer MEDICARE, SELFPAY ==
[2022-07-11 20:59] LABS: Alanine Aminotransferase 29 U/L (12-78); Albumin Level 3.6 g/dl (3.5-5.0); Albumin/Globulin Ratio 1.4 (1.1-1.8); Alkaline Phosphatase 87 U/L (38-126); Aspartate Amino Transferase 40 U/L (17-59); Bilirubin,Total 0.7 mg/dl (0.2-1.3); Blood Urea Nitrogen 14 mg/dl (9-20); Calcium 8.1 mg/dl (8.4-10.2); Carbon Dioxide 22 mmol/L (22.0-30.0); Chloride 107 mmol/L (98-107); Chol/HDL Ratio 3.9 (1-3.5); Cholesterol 145 mg/dl (140-200); Estimated Glomerular Filt Rate 114 ml/min (>60); GFR (African American) 138 ML/MIN (>60); Globulin 2.6 g/dL (1.3-3.2); Glucose 55 mg/dl (74-100); HDL Cholesterol 37 mg/dl (40-60); Sodium 136 mmol/L (136-145); Total Protein,Serum 6.2 g/dl (6.3-8.2); Triglycerides 80 mg/dl (30-150); VLDL Cholesterol 16 mg/dL (0-40)
[2022-07-11 21:22] LABS: Creatinine,Urine Random 89 mg/dL (Not Estab.); Microalbumin < 6.000 mg/L (0-16.7)
[2022-07-11 21:29] LABS: Thyroid Stimulating Hormone 1.53 uIU/mL (0.465-4.68)
[2022-07-13 12:26] LABS: Direct LDL Cholesterol 93 mg/dL (100-129)
== END ==
PROVIDERS: PCP Family Medicine; Visit Provider Family Medicine
DX: E11.9 Type 2 diabetes mellitus without complications (principal); E78.2 Mixed hyperlipidemia; I10 Essential (primary) hypertension; Z79.84 Long term (current) use of oral hypoglycemic drugs
CPT/HCPCS: 80053; 80061; 82043; 82570; 84443

== ENCOUNTER → 2023-03-19 07:57 | Outpatient (CLI) | payer MEDICARE, SELFPAY ==
[2023-03-19 08:40] VITALS: PULSE 57; PULSE 60
== END ==
PROVIDERS: PCP Nurse Practitioner; Visit Provider Internal Medicine Pulmonary Disease
DX: R06.02 Shortness of breath (principal)
CPT/HCPCS: 94060; 94640; 94727; 94729

== ENCOUNTER → 2023-05-27 10:13 | Outpatient (CLI) | payer MEDICARE, SELFPAY ==
[2023-05-27 10:35] LABS: Basophils # 0.1 K/mm3 (0-0.2); Eosinophils # 0.4 K/mm3 (0.0-0.4); Eosinophils % 4.8 % (0.1-12.0); Hematocrit 43.2 % (42.0-52.0); Hemoglobin 13.4 g/dL (14.1-18.0); Lymphocytes # 1.6 K/mm3 (0.7-4.5); Lymphocytes % 20.4 % (10-50); Mean Corpuscular Hemoglobin 25.8 pg (27.0-31.2); Mean Corpuscular Volume 83.1 fl (80-94); Mean Platelet Volume 8.1 fl (7.4-10.4); Monocytes # 0.4 K/mm3 (0.1-1.0); Monocytes % 5.5 % (1.7-9.3); Neutrophils # 5.3 K/mm3 (1.8-7.8); Neutrophils % 68.4 % (37.0-80.0); Platelet Count 198 K/mm3 (142-424); White Blood Count 7.7 K/mm3 (4.8-10.8)
[2023-05-27 12:00] LABS: Chloride 104 mmol/L (98-107)
[2023-05-27 12:01] LABS: Potassium 4.2 mmoL/L (3.5-5.1); Sodium 139 mmol/L (136-145)
[2023-05-27 12:03] LABS: Alanine Aminotransferase 30 U/L (12-78); Alkaline Phosphatase 118 U/L (38-126); Anion Gap 10.2 mEq/L (5-15); Aspartate Amino Transferase 28 U/L (17-59); Bilirubin,Direct 0.4 mg/dl (0.0-0.4); Bilirubin,Indirect 0.1 mg/dL (0.0-0.9); Bilirubin,Total 0.5 mg/dl (0.2-1.3); Bilirubin,Unconjugated 0.1 mg/dL (0.0-1.1); Blood Urea Nitrogen 12 mg/dl (9-20); Calcium 8.8 mg/dl (8.4-10.2); Carbon Dioxide 29 mmol/L (22.0-30.0); Cholesterol 140 mg/dl (140-200); Estimated Glomerular Filt Rate 97 ml/min (>60); GFR (African American) 118 ML/MIN (>60); Glucose 64 mg/dl (74-100); Total Protein,Serum 6.6 g/dl (6.3-8.2); Triglycerides 91 mg/dl (30-150); VLDL Cholesterol 18 mg/dL (0-40)
[2023-05-27 12:04] LABS: Chol/HDL Ratio 3.5 (1-3.5); HDL Cholesterol 40 mg/dl (40-60); Magnesium 1.9 mg/dl (1.6-2.3)
[2023-05-27 12:15] LABS: Direct LDL Cholesterol 83.34 mg/dL (100-129)
== END ==
PROVIDERS: PCP Nurse Practitioner; Visit Provider Nurse Practitioner
DX: E11.9 Type 2 diabetes mellitus without complications (principal); I51.89 Other ill-defined heart diseases; I10 Essential (primary) hypertension; Z79.84 Long term (current) use of oral hypoglycemic drugs
CPT/HCPCS: 36415; 80048; 80061; 80076; 83735; 85025

== ENCOUNTER 2023-09-07 09:58 | Emergency (ER) | payer MEDICARE, SELFPAY ==
[2023-09-07 10:10] VITALS: BP 126/68; PULSE 62; RESP 18; TEMP 36.9; O2SAT 96; BMI 33.4
[2023-09-07 10:36] LABS: UTC Influenza A Antigen Negative (Negative); UTC Influenza B Antigen Negative (Negative)
--- NOTE | 2023-09-07 10:45 | EXP.UTC ---
Discharge Plan Disposition Patient Disposition: Home, Self-Care Condition: Good Prescriptions Prescriptions: No Action fluticasone propionate 50 mcg/actuation spray,suspension 1 spray intranasal DAILY Qty: 16 2RF Rx Instructions: administer into each nostril glimepiride 4 mg tablet 4 mg PO DAILY Rx Instructions: TAKE 1 TABLETS BY MOUTH ONCE DAILY lansoprazole 30 mg capsule,delayed release(DR/EC) 30 mg PO DAILY 90 Days Qty: 90 gabapentin 300 mg capsule 600 mg PO HS 30 Days Qty: 60 Patient Comments: 300MG in the AM, 600MG in the PM aspirin 81 mg tablet,delayed release (DR/EC) 81 mg PO DAILY montelukast [Singulair] 10 mg tablet 10 mg PO DAILY Qty: 60 4RF Trelegy Ellipta 100-62.5-25 mcg blister with device 1 inh INHALATION DAILY 90 Days Qty: 90 3RF albuterol sulfate 90 mcg/actuation HFA aerosol inhaler 1 inh INHALATION QID PRN (Reason: shortness of breath or wheezing) 90 Days Qty: 8.5 3RF ipratropium-albuterol 0.5 mg-3 mg(2.5 mg base)/3 mL solution for nebulization 3 ml INHALATION QID PRN (Reason: shortness of breath or wheezing) 90 Days Qty: 360 3RF trazodone 50 mg tablet 50 mg PO HS pramipexole 0.25 mg tablet 0.125 mg PO DAILY pramipexole 0.75 mg tablet 0.75 mg PO HS dapagliflozin propanediol 5 mg tablet 5 mg PO DAILY 90 Days Qty: 90 1RF tamsulosin 0.4 mg capsule 0.4 mg PO DAILY Qty: 90 3RF metformin 1,000 mg tablet See Rx Instructions .ROUTE .COMPLEX Qty: 180 0RF Dose Instruction: TAKE 1 TABLET BY MOUTH TWICE A DAY FOR 90 DAYS Rx Instructions: TAKE 1 TABLET BY MOUTH TWICE A DAY FOR 90 DAYS atorvastatin 80 mg tablet See Rx Instructions .ROUTE .COMPLEX Qty: 90 1RF Dose Instruction: TAKE 1 TABLET BY MOUTH EVERY DAY Rx Instructions: TAKE 1 TABLET BY MOUTH EVERY DAY Brilinta 90 mg tablet See Rx Instructions .ROUTE .COMPLEX Qty: 180 1RF Dose Instruction: TAKE 1 TABLET BY MOUTH TWICE A DAY Rx Instructions: TAKE 1 TABLET BY MOUTH TWICE A DAY paroxetine HCl 40 mg tablet See Rx Instructions .ROUTE .COMPLEX Qty: 90 0RF Dose Instruction: TAKE 1 TABLET BY MOUTH EVERY DAY Rx Instructions: TAKE 1 TABLET BY MOUTH EVERY DAY sulindac 200 mg tablet See Rx Instructions .ROUTE .COMPLEX Qty: 180 0RF Dose Instruction: TAKE 1 TABLET BY MOUTH TWICE A DAY Rx Instructions: TAKE 1 TABLET BY MOUTH TWICE A DAY metoprolol succinate 25 mg tablet extended release 24 hr 25 mg PO DAILY Qty: 30 0RF Rx Instructions: Will need an appointment before next refill. Referrals Follow up/Referrals: Gerardo Barrientos MD [Primary Care Provider] - See instructions Activity Restrictions/Add. Instructions Additional Instructions/Restrictions: covid swab was sent to lab, call tomorrow for results. self isolate until test results are known to be negative No sign of a bacterial infection. Likely viral. Viruses can take 7-14 days to run their course. Nasal saline and bulb syringe or nose Ros to remove nasal drainage to help with nasal congestion. Hard to eat, drink, sleep with nasal congestion so important to keep this cleaned out. Monitor temp. Tylenol or Motrin as needed for pain or fever Encourage fluids, water, Gatorade, Powerade, Pedialyte if /toddler/child Warm salt water gargles Warm fluids Sore throat lozenges Sleep elevated Humidifier/vaporizer Follow-up immediately for new or worsening symptoms or no noticeable improvement over the next 48-72 hours. Clinical Impressions Clinical Impression: Upper respiratory infection Qualifiers: URI type: unspecified viral URI Qualified Code(s): J06.9 - Acute upper respiratory infection, unspecified Instructions Patient Instructions: DI for Viral Upper Respiratory Infection -- Adult Discharge ED Provider: Dave ([facility])[place] [facility] [place] H[place] General Stated complaint: fever, runny nose, cough, h/
[2023-09-07 10:54] VITALS: BP 126/68; PULSE 62; RESP 18; TEMP 36.9; O2SAT 96
== END 2023-09-07 10:54 | disposition home or self-care (01) ==
PROVIDERS: Emergency Provider Nurse Practitioner Family; PCP Family Medicine
DX: U07.1 COVID-19 (principal); R50.9 Fever, unspecified; R51.9 Headache, unspecified; R19.7 Diarrhea, unspecified; J44.9 Chronic obstructive pulmonary disease, unspecified; I25.10 Atherosclerotic heart disease of native coronary artery without angina pectoris; I11.9 Hypertensive heart disease without heart failure; E78.5 Hyperlipidemia, unspecified; R91.8 Other nonspecific abnormal finding of lung field; E11.9 Type 2 diabetes mellitus without complications; Z79.84 Long term (current) use of oral hypoglycemic drugs; Z95.5 Presence of coronary angioplasty implant and graft
CPT/HCPCS: 87635; 87804; 99203; 99212; G0463

== ENCOUNTER → 2023-09-12 21:18 | Outpatient (CLI) | payer MEDICARE, SELFPAY | LOC: SL 21:20 | PROVIDERS: PCP Family Medicine; Visit Provider Specialist | DX: G47.31 Primary central sleep apnea; G47.33 Obstructive sleep apnea (adult) (pediatric) | CPT/HCPCS: 95811 ==

== ENCOUNTER → 2023-09-17 14:50 | Outpatient (CLI) | payer MEDICARE, SELFPAY ==
--- NOTE | 2023-09-17 14:50 | CT_ITS ---
FINAL REPORT CLINICAL HISTORY: Nodule FINDINGS: Axial images through the chest was performed by computed tomography. Sagittal and coronal reformatted images were obtained and reviewed. High-resolution technique was performed with supine and prone inspiration and expiration. The heart size is normal. There are densely calcified right paratracheal and right hilar lymph nodes. There is no pleural or pericardial effusion. There is no pneumothorax. There is a noncalcified 7 mm right lower lobe nodule on image 38 of series 2. There is no bronchiectasis. There is no significant air trapping. IMPRESSION: 7 mm right lower lobe nodule. Per Fleischner criteria consider follow-up in 6-12 months Reviewed, Interpreted and Dictated by Chuck Joe MD Transcribed by Hubert Hudson Authenticated and . [facility]
== END ==
LOC: RAD 14:50
PROVIDERS: PCP Family Medicine; Visit Provider Internal Medicine Pulmonary Disease
DX: J84.9 Interstitial pulmonary disease, unspecified (principal)
CPT/HCPCS: 71250

== ENCOUNTER 2024-01-06 10:42 | Emergency (ER) | payer MEDICARE, SELFPAY ==
[2024-01-06] VITALS (8 sets, daily range): BP systolic 116–131; BP diastolic 58–89; PULSE 58–72; RESP 18–20; TEMP 36.9; O2SAT 94–98; BMI 34.1
--- NOTE | 2024-01-06 10:57 | PC.NURSE ---
pt denies any injury to the lue. states it hurts with movement and is edematous.
--- NOTE | 2024-01-06 11:21 | PC.NURSE ---
ED MD AT BEDSIDE
--- NOTE | 2024-01-06 11:24 | XR_ITS ---
FINAL REPORT CLINICAL HISTORY: pain, swelling FINDINGS: LEFT WRIST 3 views were obtained. There is no acute fracture or dislocation. Visualized joint spaces are normally aligned. There are mild degenerative changes. Soft tissues are unremarkable. IMPRESSION: No acute bony abnormality. Reviewed, Interpreted and Dictated by Seth Corrales III, MD Transcribed by Frances Fleming Authenticated and [facility]
--- NOTE | 2024-01-06 11:24 | XR_ITS ---
FINAL REPORT CLINICAL HISTORY: pain, swelling FINDINGS: 2 views of the left forearm were obtained. There is no acute fracture or dislocation. There are mild degenerative changes at the elbow and wrist. There are no soft tissue abnormalities. IMPRESSION: No acute process. Reviewed, Interpreted and Dictated by Seth Corrales III, MD Transcribed by Frances Fleming Authenticated and [facility]
--- NOTE | 2024-01-06 11:25 | HMH.EDGENADL ---
Discharge Plan Disposition Patient Disposition: Home, Self-Care Condition: Good Prescriptions Prescriptions: New cephalexin 500 mg capsule 500 mg PO QID 5 Days Qty: 20 0RF sulfamethoxazole-trimethoprim 800-160 mg tablet 1 tab PO BID 5 Days Qty: 10 0RF No Action Brilinta 90 mg tablet See Rx Instructions .ROUTE .COMPLEX Qty: 180 1RF Dose Instruction: TAKE 1 TABLET BY MOUTH TWICE A DAY Rx Instructions: TAKE 1 TABLET BY MOUTH TWICE A DAY metoprolol succinate 25 mg tablet extended release 24 hr See Rx Instructions .ROUTE .COMPLEX Qty: 90 1RF Dose Instruction: TAKE 1 TABLET BY MOUTH EVERY DAY - WILL NEED AN APPOINTMENT BEFORE NEXT REFILL. Rx Instructions: TAKE 1 TABLET BY MOUTH EVERY DAY - WILL NEED AN APPOINTMENT BEFORE NEXT REFILL. dapagliflozin propanediol 5 mg tablet 5 mg PO DAILY 90 Days Qty: 90 1RF atorvastatin 80 mg tablet See Rx Instructions .ROUTE .COMPLEX Qty: 90 1RF Dose Instruction: TAKE 1 TABLET BY MOUTH EVERY DAY Rx Instructions: TAKE 1 TABLET BY MOUTH EVERY DAY aspirin 81 mg tablet,delayed release (DR/EC) 81 mg PO DAILY Qty: 90 1RF Horizant 600 mg tablet extended release 600 mg PO HS MDD 600 mg Qty: 30 5RF Rx Instructions: administer daily at approximately 5 PM with food/evening meal lansoprazole 30 mg capsule,delayed release(DR/EC) 30 mg PO DAILY 90 Days Qty: 90 gabapentin 300 mg capsule 600 mg PO HS 30 Days Qty: 60 Patient Comments: 300MG in the AM, 600MG in the PM albuterol sulfate 90 mcg/actuation HFA aerosol inhaler 1 inh INHALATION QID PRN (Reason: shortness of breath or wheezing) 90 Days Qty: 8.5 3RF ipratropium-albuterol 0.5 mg-3 mg(2.5 mg base)/3 mL solution for nebulization 3 ml INHALATION QID PRN (Reason: shortness of breath or wheezing) 90 Days Qty: 360 3RF fluticasone furoate-vilanterol [Breo Ellipta] 100-25 mcg/dose blister with device 1 inh inhalation DAILY Qty: 90 2RF montelukast [Singulair] 10 mg tablet 10 mg PO DAILY Qty: 90 2RF fluticasone propionate 50 mcg/actuation spray,suspension 1 spray intranasal DAILY Qty: 16 3RF Rx Instructions: administer into each nostril pramipexole 0.75 mg tablet 0.75 mg PO HS metformin 1,000 mg tablet See Rx Instructions .ROUTE .COMPLEX Qty: 180 0RF Dose Instruction: TAKE 1 TABLET BY MOUTH TWICE A DAY FOR 90 DAYS Rx Instructions: TAKE 1 TABLET BY MOUTH TWICE A DAY FOR 90 DAYS sulindac 200 mg tablet See Rx Instructions .ROUTE .COMPLEX Qty: 180 0RF Dose Instruction: TAKE 1 TABLET BY MOUTH TWICE A DAY Rx Instructions: TAKE 1 TABLET BY MOUTH TWICE A DAY trazodone 50 mg tablet 50 mg PO HS 90 Days Qty: 90 3RF Rx Instructions: Take 1/2 tab to 1 tab by mouth nightly 1 hours before bedtime for insomnia glimepiride 4 mg tablet See Rx Instructions .ROUTE .COMPLEX Qty: 90 1RF Dose Instruction: TAKE 2 TABLETS BY MOUTH EVERY DAY Rx Instructions: TAKE 2 TABLETS BY MOUTH EVERY DAY pramipexole 0.25 mg tablet See Rx Instructions .ROUTE .COMPLEX Qty: 315 1RF Dose Instruction: TAKE 1/2 TABLET EVERY MORNING AND 3 TABLETS IN THE EVENING Rx Instructions: TAKE 1/2 TABLET EVERY MORNING AND 3 TABLETS IN THE EVENING paroxetine HCl 40 mg tablet See Rx Instructions .ROUTE .COMPLEX Qty: 90 0RF Dose Instruction: TAKE 1 TABLET BY MOUTH EVERY DAY Rx Instructions: TAKE 1 TABLET BY MOUTH EVERY DAY tamsulosin 0.4 mg capsule See Rx Instructions .ROUTE .COMPLEX Qty: 90 3RF Dose Instruction: TAKE 1 CAPSULE BY MOUTH EVERY DAY Rx Instructions: TAKE 1 CAPSULE BY MOUTH EVERY DAY Referrals Follow up/Referrals: Gerardo Barrientos MD [Primary Care Provider] - See instructions Activity Restrictions/Add. Instructions Additional Instructions/Restrictions: You were seen in the ED today due to left wrist pain and swelling. It is most likely you have a cellulitis. Follow up with your primary care provider within the next week. Return to the ED if symptoms worsen or if new concerning symptoms arise. Clinical Impressions Clinical Impression: Cellulitis Qualifiers: Site of cellulitis: extremity Site of cellulitis of extremity: upper extremity Laterality: left Qualified Code(s): L03.114 - Cellulitis of left upper limb Instructions Patient Instructions: DI for Cellulitis -- Adult Discharge ED Provider: Shaun Mackenzie Adult HPI General Chief complaint: Extremity Problem,Nontraumatic Stated complaint: left arm pain Time Seen by Provider: 01/06/24 11:16 Mode of Arrival: Ambulatory Source of Information: Patient and Spouse Limitations: No Limitations Description of Symptoms (Recalled from ER Triage Doc. by RN): left arm pain and edema. History of Present Illness HPI narrative: Patient is a 63-year-old male with history of COPD, HTN, HLD, CAD on aspirin/Brilinta, diabetes who presents to the ED due to left wrist and forearm pain. Patient's is present to help provide history. Patient reports over the past week he has had pain localized to his left wrist. He states it has been swollen and painful to move. States the pain shoots up his left forearm as well. He denies any inciting trauma. He was seen by his stabilizer operator today who is concerned for gout/cellulitis. He was advised to follow-up with his PCP however could not get in soon enough, prompting his visit to the ED today. Denies any fevers at home. States he has had issues with gout in his toes before. Related Data Home Medications Medication Instructions Recorded Confirmed lansoprazole 30 mg capsule,delayed 30 mg PO DAILY 90 days #90 caps 08/12/18 01/06/24 release gabapentin 300 mg capsule 600 mg PO HS 30 days #60 caps 09/19/20 01/06/24 pramipexole 0.75 mg tablet 0.75 mg PO HS 08/28/23 01/06/24 Previous Rx's Medication Instructions Recorded albuterol sulfate 90 mcg/actuation 1 inh inhalation QID PRN shortness 09/18/22 aerosol inhaler of breath or wheezing 90 days #8.5 grams ipratropium 0.5 mg-albuterol 3 mg 3 ml inhalation QID PRN shortness 09/18/22 (2.5 mg base)/3 mL nebulization of breath or wheezing 90 days #360 soln mL metformin 1,000 mg tablet See Rx Instructions .Route 05/02/23 .COMPLEX #180 tabs sulindac 200 mg tablet See Rx Instructions .Route 06/28/23 .COMPLEX #180 tabs trazodone 50 mg tablet 50 mg PO HS insomnia 90 days #90 09/09/23 tabs glimepiride 4 mg tablet See Rx Instructions .Route 09/10/23 .COMPLEX #90 tabs pramipexole 0.25 mg tablet See Rx Instructions .Route 09/10/23 .COMPLEX #315 tabs fluticasone furoate 100 1 inh inhalation DAILY #90 ea 09/24/23 mcg-vilanterol 25 mcg/dose inhalation powder (Breo Ellipta) fluticasone propionate 50 1 spray intranasal DAILY #16 grams 09/24/23 mcg/actuation nasal spray,suspension montelukast 10 mg tablet 10 mg PO DAILY #90 tabs 09/24/23 (Singulair) paroxetine HCl 40 mg tablet See Rx Instructions .Route 11/21/23 .COMPLEX #90 tabs aspirin 81 mg tablet,delayed 81 mg PO DAILY #90 tabs 11/25/23 release atorvastatin 80 mg tablet See Rx Instructions .Route 11/25/23 .COMPLEX #90 tabs dapagliflozin propanediol 5 mg 5 mg PO DAILY 90 days #90 tabs 11/25/23 tablet metoprolol succinate 25 mg See Rx Instructions .Route 11/25/23 tablet,extended release 24 hr .COMPLEX #90 tabs ticagrelor 90 mg tablet (Brilinta) See Rx Instructions .Route 11/25/23 .COMPLEX #180 tabs gabapentin enacarbil 600 mg 600 mg PO HS RLS #30 tabs 12/12/23 tablet,extended release (Horizant ER) cephalexin 500 mg capsule 500 mg PO QID 5 days #20 caps 01/06/24 sulfamethoxazole 800 1 tab PO BID 5 days #10 tabs 01/06/24 mg-trimethoprim 160 mg tablet tamsulosin 0.4 mg capsule See Rx Instructions .Route 01/06/24 .COMPLEX #90 caps Allergies Allergy/AdvReac Type Severity Reaction Status Date / Time morphine Allergy Intermediate I-ITCHING Verified 01/06/24 10:18 tolmetin Allergy Intermediate I-RASH Verified 01/06/24 10:18 [facility] Disclaimer: The information contained in this section may have been updated after the patient was seen, as this information can be updated by other users. Medical History Allergic rhinitis Asthma-COPD overlap syndrome CAD (coronary artery disease) COPD (chronic obstructive pulmonary disease) Diabetes Dyspnea on exertion History of 2019 novel coronavirus disease (COVID-19) History of DVT (deep vein thrombosis) History of placement of stent in LAD coronary artery AUG 2019. History of smoking 30 or more pack years HLD (hyperlipidemia) HTN (hypertension) Multiple pulmonary nodules Restrictive lung disease Active follow-up with [facility]/pulmonology team Surgical History History of back surgery History of cardiac cath History of colonoscopy History of heart artery stent History of shoulder surgery Family History Other Coronary artery disease Diabetes Heart attack Hyperlipidemia Hypertension Social History Smoking Status: Never smoker alcohol intake: never substance use type: denies use current occupational status: retired Travel in the last 8 weeks: None household members: spouse housing: house ROS Obtained: Yes All systems reviewed & no additional complaints except as documented Constitutional Constitutional: Denies chills and Denies fever(s) Cardiovascular Cardiovascular: Denies chest pain and Denies dyspnea Respiratory Respiratory: Denies shortness of breath and Denies dyspnea Gastrointestinal Gastrointestingal: Denies abdominal pain, diarrhea, nausea or vomiting Musculoskeletal Musculoskeletal: Reports arthralgias, Reports joint swelling and Reports limited range of motion Physical Exam General General appearance: alert and in no apparent distress Head Head exam: atraumatic, normocephalic and normal inspection Eye Eye exam: Present normal appearance, PERRL and EOMI ENT ENT exam: Present normal exam, normal oropharynx, mucous membranes moist, TM's normal bilaterally and normal external ear exam Neck Neck exam: Present normal inspection, full ROM and trachea midline; Absent meningismus or lymphadenopathy Chest Chest inspection: Present normal inspection and symmetric chest wall rise; Absent tenderness Respiratory Respiratory exam: Present normal lung sounds bilaterally; Absent respiratory distress Cardiovascular Cardiovascular exam: Present regular rate and normal rhythm; Absent JVD Abdominal Exam Abdominal exam: Present soft and normal bowel sounds; Absent distention, tenderness or guarding Extremities Exam Extremities exam: Present normal inspection, full ROM, normal capillary refill and other (Left wrist blanchable erythema with tenderness to palpation and limited active range of motion. Passive range of motion intact. Distal pulses, movement and sensation intact.); Absent calf tenderness Back Exam Back exam: Present normal inspection; Absent tenderness Neurological Exam Neurological exam: Present alert and oriented X3 Psychiatric Psychiatric exam: Present normal affect and normal mood Skin Skin exam: Present warm, dry, intact and normal color Lymphatic Lymphatic Findings: no adenopathy Medical Decision Making Medical Records Medical records reviewed: Yes I reviewed the patient's medical records. Jori Inquiry Pt receiving controlled substance: No Jori was queried for this patient: No Vital Signs: 01/06/24 10:48 01/06/24 11:01 01/06/24 11:30 Temperature 98.5 F Temperature Source Oral Pulse Rate 69 68 Pulse Rate [Right Radial] 72 Respiratory Rate 18 20 Blood Pressure 131/67 119/63 Blood Pressure [Right Arm] 126/60 Blood Pressure Mean 81 Blood Pressure Mean [Right Arm] 82 Blood Pressure Source Blood Pressure Position 02 Sat by Pulse Oximetry 97 97 94 L Oxygen Delivery Method Room Air Room Air 01/06/24 12:00 01/06/24 12:31 01/06/24 13:01 Temperature Temperature Source Pulse Rate 65 61 58 L Pulse Rate [Right Radial] Respiratory Rate 20 Blood Pressure 128/68 123/58 L 125/64 Blood Pressure [Right Arm] Blood Pressure Mean 82 Blood Pressure Mean [Right Arm] Blood Pressure Source Blood Pressure Position 02 Sat by Pulse Oximetry 96 95 95 Oxygen Delivery Method Room Air Room Air 01/06/24 13:30 01/06/24 13:56 Temperature 98.5 F Temperature Source Oral Pulse Rate 58 L 62 Pulse Rate [Right Radial] Respiratory Rate 20 18 Blood Pressure 116/89 116/89 Blood Pressure [Right Arm] Blood Pressure Mean 96 Blood Pressure Mean [Right Arm] Blood Pressure Source Automatic Cuff Blood Pressure Position Sitting 02 Sat by Pulse Oximetry 96 Oxygen Delivery Method Room Air Lab Data Lab results reviewed: Yes I reviewed the patient's lab results. Lab Results 01/06/24 11:45: WBC 7.3, RBC 4.99, Hgb 13.6 L, Hct 43.6, MCV 87.4, MCH 27.3, MCHC 31.3 L, RDW 15.2, Plt Count 201, MPV 8.4, Neut % (Auto) 60.9, Lymph % (Auto) 25.7, [place] % (Auto) 6.2, Eos % (Auto) 5.7, Baso % (Auto) 1.5, Neut # (Auto) 4.4, Lymph # (Auto) 1.9, [place] # (Auto) 0.5, Eos # (Auto) 0.4, Baso # (Auto) 0.1, ESR 1, Sodium 140, Potassium 4.2, Chloride 105, Carbon Dioxide 27, Anion Gap 12.2, BUN 13, Creatinine 0.80, Estimated Creat Clear 109, Estimated GFR 97, Est GFR ( Amer) 117, Glucose 110 H, Calcium 8.7, C-Reactive Protein 0.4 01/06/24 11:45 01/06/24 11:45 Orders (Tests/Meds): ORDERS Category Date Time Status Forearm XR left 2 views [XR forearm LT 2V] Stat Exams 01/06/24 11:24 Completed Wrist XR left 2 views [XR wrist LT 2V] Stat Exams 01/06/24 11:24 Completed BMP [Basic Metabolic Panel] Stat Lab 01/06/24 11:45 Completed CBC w/Auto Diff [Complete Blood Count Auto Diff] Stat Lab 01/06/24 11:45 Completed CRP [C-Reactive Protein] Stat Lab 01/06/24 11:45 Completed ESR [Erythrocyte Sedimentation Rate] Stat Lab 01/06/24 11:45 Completed Medical Decision Narrative: In summary, patient is a 63-year-old male presenting to the ED with left wrist and forearm pain and swelling. On arrival, patient is hemodynamically stable. On examination, patient has blanchable erythema and tenderness to left wrist. Differential diagnosis includes but is not limited to cellulitis, gout, musculoskeletal strain. Workup initiated including CBC, BMP, ESR, CRP, x-rays of left wrist/forearm. Labs independently interpreted by me and significant for normal laboratory workup. Imaging independently interpreted by me and significant for no acute abnormalities on x-rays. On reevaluation, patient is resting comfortably and well-appearing. Given his well appearance, reassuring workup and ability to follow-up with his primary care provider within the next few days, he is appropriate for outpatient treatment of likely cellulitis. Prescriptions for Keflex and Bactrim provided. Patient counseled on home care, given strict return precautions and agreeable to plan. Additional history was provided by patient's . I considered the utility of obtaining CT imaging, but decided against this because this would not price changer. I considered the utility of treatment with IV antibiotics, but decided against this because patient is well appearing and tolerating oral intake. I considered admitting the patient to the hospital for further observation, and in shared decision-making with patient and family, decided on outpatient management. Procedures Risk/Benefits of Procedure(s) Were Explained: Yes Critical Care Critical Care Time Critical Care Time: No
[2024-01-06 11:55] LABS: Basophils # 0.1 K/mm3 (0-0.2); Basophils % 1.5 % (0.1-2.0); Eosinophils # 0.4 K/mm3 (0.0-0.4); Eosinophils % 5.7 % (0.1-12.0); Hematocrit 43.6 % (42.0-52.0); Hemoglobin 13.6 g/dL (14.1-18.0); Lymphocytes # 1.9 K/mm3 (0.7-4.5); Lymphocytes % 25.7 % (10-50); Mean Corpuscular HGB Conc 31.3 g/dL (31.8-35.4); Mean Corpuscular Hemoglobin 27.3 pg (27.0-31.2); Mean Corpuscular Volume 87.4 fl (80-94); Mean Platelet Volume 8.4 fl (7.4-10.4); Monocytes # 0.5 K/mm3 (0.1-1.0); Monocytes % 6.2 % (1.7-9.3); Neutrophils # 4.4 K/mm3 (1.8-7.8); Neutrophils % 60.9 % (37.0-80.0); Platelet Count 201 K/mm3 (142-424); Red Blood Count 4.99 M/mm3 (4.60-6.20); Red Cell Distribution Width 15.2 % (11.5-17.5); White Blood Count 7.3 K/mm3 (4.8-10.8)
[2024-01-06 12:04] LABS: Anion Gap 12.2 mEq/L (5-15); Blood Urea Nitrogen 13 mg/dl (9-20); Calcium 8.7 mg/dl (8.4-10.2); Carbon Dioxide 27 mmol/L (22.0-30.0); Chloride 105 mmol/L (98-107); Creatinine Clearance Estimated 109 mL/min (50-200); Estimated Glomerular Filt Rate 97 ml/min (>60); GFR (African American) 117 ML/MIN (>60); Glucose 110 mg/dl (74-100); Potassium 4.2 mmoL/L (3.5-5.1); Sodium 140 mmol/L (136-145)
[2024-01-06 12:20] LABS: C-Reactive Protein 0.4 mg/L (0-4)
[2024-01-06 12:22] LABS: Erythrocyte Sedimentation Rate 1 mm/hr (0-20)
--- NOTE | 2024-01-06 12:32 | PC.NURSE ---
Rounded on pt. No needs voiced. Pt and provided with water. No other needs voiced.
--- NOTE | 2024-01-06 13:45 | PC.NURSE ---
ED MD AT BEDSIDE TO UPDATE PT AND FAMILY
== END 2024-01-06 14:00 | disposition home or self-care (01) ==
PROVIDERS: Emergency Provider Student in an Organized Health Care Education/Training Program; PCP Family Medicine
DX: L03.114 Cellulitis of left upper limb (principal); M79.632 Pain in left forearm; E11.9 Type 2 diabetes mellitus without complications; J44.9 Chronic obstructive pulmonary disease, unspecified; I11.9 Hypertensive heart disease without heart failure; I25.10 Atherosclerotic heart disease of native coronary artery without angina pectoris; E78.5 Hyperlipidemia, unspecified; Z79.01 Long term (current) use of anticoagulants; Z79.84 Long term (current) use of oral hypoglycemic drugs; Z95.5 Presence of coronary angioplasty implant and graft; Z87.891 Personal history of nicotine dependence
CPT/HCPCS: 73090; 73100; 80048; 85025; 85651; 86140; 99283

== ENCOUNTER 2024-01-28 12:04 | Outpatient (CLI) | payer MEDICARE, SELFPAY ==
--- NOTE | 2024-01-28 12:05 | NM_ITS ---
APPROVED REPORT Exam: Nuclear Stress Test Indication: soa..hypertension..diabetes..high cholesterol Patient Location: Outpatient Stress Tech: Suzy Livingston [place] Tech:Shara Hogan, ARRT, RT (R)(N) Ht: 5 ft 9 in Wt: 236 lbs HR: 49 bpm BP: 123/69 mmHg BSA: 2.22 m2 Rhythm: NSR TID: 1.30 BMI: 34.8 History: soa..hypertension..diabetes..high cholesterol Procedure: Patient received 0.4 mg of intravenous Lexiscan, resting heart rate 49 bpm, resting blood pressure 123/69 mmHg, with Lexiscan maximum heart rate achieved was 90 bpm which is 85 % of the maximum predicted heart rate and blood pressure was 150/67 mmHg. With Lexiscan, patient denied any complaint of chest pain. Cardiac Stress and Resting SPECT Images: Cardiac Stress and Resting SPECT images were obtained using technetium 99m Myoview 32.5 mCi stress and 10.63 mCi at rest. Resting and stress imaging in supine and prone positions demonstrate no definite evidence of fixed or reversible perfusion defects. There is increased transient ischemic dilatation ratio (TID 1.30), suggestive of possible multivessel disease or balanced ischemia. Gated imaging demonstrates normal global and regional LV systolic function. LVEF is calculated at 57%. Conclusion: No definite evidence of fixed or reversible perfusion defects. There is increased transient ischemic dilatation ratio (TID 1.30), suggestive of possible multivessel disease or balanced ischemia. Gated imaging demonstrates normal global and regional LV systolic function. LVEF is calculated at 57%. Electronically signed by : Kristan Menjivar MD 01/29/2024 11:28:50
[2024-01-28] MEDS: SODIUM CHLORIDE 0.9% 10ML SYR (RAD ONLY) 10 ML IV ×2 (13:39)
[2024-01-28] MEDS: ISOTOPE MYOVIEW (PER STUDY) 1 DOSE IV (13:39)
[2024-01-28] MEDS: REGADENOSON 0.4MG/5ML SYRINGE 0.400000000000000022 MG IV (13:39)
--- NOTE | 2024-01-28 16:02 | CA_ITS ---
APPROVED REPORT Exam: Pharmacologic Technologist: Suzy Livingston Ht: 5 ft 9 in Wt: 232 lbs BSA: 2.20 m2 HR: 49 bpm BP: 123/69 mmHg Rhythm: NSR Indications: i25.10, R06.09 Medical History Medications: Aspirin,,,,, Metoprolol,,,,, Metformin,,,,, Cephalexin,,,,, Gabapentin,,,,, Atorvastatin,,,,, Glimepiride,,,,, Ticagrelor,,,,, Duoneb,,,,, Albuterol,,,,, Lansoprazole,,,,, Montelukast,,,,, Stress Test Details Test: LEXISCAN HR Resting HR: 49 bpm Max Heart Rate (APMHR): 155 bpm Max HR Achieved: 90 bpm Target HR (85% APMHR): 132 bpm % of APMHR: 58 Recovery HR: 62 bpm BP Resting BP: 123.0/69.0 mmHg Max BP: 150.0/67.0 mmHg Recovery BP: 117.0/63.0 mmHg ECG Resting ECG: Sinus Bradycardia Stress ECG: No significant ST changes Arrhythmia: PACs Clinical Exercise duration: 04:08 min Highest Stage Achieved: Stress ECG Conclusion Symptoms: None Arrhythmias/Ectopy: PAC ST-T Changes: No significant ST changes Conclusion: EKG portion unremarkable due to Lexiscan infusion. Myoview images are reported separately. Test Summary REST . . . . . . . Resting REST 02:52 . . 49 . 123/ 69 . . Stage 1 . . . . . . . Myoview Injected Stage 1 01:00 . . 80 . . . . Stage 2 01:00 . . 84 . . . . Stage 3 01:00 . . 74 . 150/ 67 . . Stage 4 01:00 . . 68 . 124/ 70 . . Stage 4 01:08 . . 75 . 124/ 70 . Stop exercise at 04:08 RECOVERY 01:00 . . 65 . . . . RECOVERY 02:00 . . 66 . 129/ 63 . . RECOVERY 03:00 . . 67 . 129/ 63 . . RECOVERY 04:00 . . 62 . 117/ 63 . . RECOVERY 04:36 . . 62 . 117/ 63 . . Electronically signed by : Kristan Menjivar MD 01/29/2024 11:27:48
== END 2024-01-28 23:59 ==
LOC: RAD 12:05
PROVIDERS: PCP Family Medicine; Visit Provider Nurse Practitioner
DX: R06.09 Other forms of dyspnea (principal); I25.10 Atherosclerotic heart disease of native coronary artery without angina pectoris
CPT/HCPCS: 78452; 93017; 93018; A9502; J2785

== ENCOUNTER 2024-02-14 08:11 | Day surgery (SDC) | payer MEDICARE, MEDICAID, SELFPAY ==
[2024-02-14] VITALS (10 sets, daily range): BP systolic 94–168; BP diastolic 45–76; PULSE 44–63; RESP 15–20; TEMP 36.3; O2SAT 90–97; BMI 33.5
--- NOTE | 2024-02-14 07:10 | IR_ITS ---
APPROVED REPORT Patient Location: [facility] Art Therapist: GAVINO Burnett RT (R) PROCEDURES Left heart catheterization Left ventriculogram Selective coronary angiogram INDICATION Known coronary disease, Abnormal Myoview, Possible angina pectoris Informed consent was obtained prior to the procedure. COMPLICATIONS NONE Estimated Blood Loss: LESS THAN 10 ML TECHNIQUE One percent lidocaine used to anesthetize the right anterior aspect of the wrist. The right radial artery was accessed via the Seldinger technique. A 6 Romanian sheath was placed in the right radial artery. 2.5 mg of Verapamil, 800 mcg of nitroglycerin, 1mg Lidocaine and 5000 U Heparin were given through the arterial sheath. The papa catheter was also used to perform left heart catheterization, left ventriculogram and selective coronary angiogram. At the end of the procedure the sheath was removed good hemostasis was achieved using Traclet band, patient was transferred to the postop holding area in stable condition. ANGIOGRAPHIC RESULTS The left main artery Normal and widely patent The left anterior descending artery Has a stent in the ostial proximal segment which is widely patent free of in-stent restenosis with excellent proximal distal transitioning. The remaining LAD is widely patent and has minimal diffuse 10 to 20% luminal regularities The circumflex artery Is a large dominant vessel and gives rise to a 2.5 mm ramus intermedius which has a proximal 90% stenosis while the remaining circumflex artery is widely patent with a 20 to 30% stenosis and a medium sized first obtuse marginal artery The right coronary artery Is nondominant and has proximal and mid vessel diffuse 30% stenoses The TRACY ventriculogram reveals Normal 65% The left ventricular end-diastolic pressure 25 mmHg IMPRESSION Widely patent proximal LAD stent as described above Severe stenosis and a 2.5 mm ramus intermedius which is potentially amenable to percutaneous stenting however medical management would be most desirable Normal ejection fraction Elevated LVEDP which is contributing to patient's angina PLAN 1. Treatment of diastolic dysfunction and elevated LVEDP at that this time 2. Add Imdur 30 mg daily along with Ranexa 500 mg twice daily with plans to uptitrate Ranexa to 1000 twice daily 3. Add low-dose diuretics to decrease LVEDP 4. Aggressive medical management 5. If patient's angina becomes recalcitrant he could be brought back to the [facility] and undergo stenting of the ramus intermedius. There is approximately 2 mm of a proximal landing zone which would allow stenting however I believe this lesion is only producing angina based on the elevated LVEDP and should respond favorably to medical management Electronically signed by : Wm Sotelo MD 02/14/2024 10:22:27
[2024-02-14 08:38] LABS: Basophils # 0.2 K/mm3 (0-0.2); Eosinophils # 0.3 K/mm3 (0.0-0.4); Eosinophils % 4.1 % (0.1-12.0); Hematocrit 45.5 % (42.0-52.0); Hemoglobin 14.3 g/dL (14.1-18.0); Lymphocytes # 2.2 K/mm3 (0.7-4.5); Lymphocytes % 28.6 % (10-50); Mean Corpuscular HGB Conc 31.4 g/dL (31.8-35.4); Mean Corpuscular Volume 85.9 fl (80-94); Mean Platelet Volume 8.1 fl (7.4-10.4); Monocytes # 0.5 K/mm3 (0.1-1.0); Monocytes % 6.4 % (1.7-9.3); Neutrophils # 4.5 K/mm3 (1.8-7.8); Platelet Count 203 K/mm3 (142-424); Red Cell Distribution Width 15.3 % (11.5-17.5); White Blood Count 7.6 K/mm3 (4.8-10.8)
[2024-02-14 08:55] LABS: Anion Gap 10.2 mEq/L (5-15); Blood Urea Nitrogen 15 mg/dl (9-20); Calcium 9.6 mg/dl (8.4-10.2); Carbon Dioxide 29 mmol/L (22.0-30.0); Chloride 104 mmol/L (98-107); Creatinine Clearance Estimated 107 mL/min (50-200); Estimated Glomerular Filt Rate 85 ml/min (>60); GFR (African American) 102 ML/MIN (>60); Glucose 119 mg/dl (74-100); Potassium 4.2 mmoL/L (3.5-5.1); Sodium 139 mmol/L (136-145)
[2024-02-14] MEDS: 0.9 % SODIUM CHLORIDE 500 ML 25 ML IV (09:34)
[2024-02-14] MEDS: HEPARIN 1,000 UNITS/500ML NS (CATH LAB) 3000 UNIT IV (09:35)
[2024-02-14] MEDS: LIDOCAINE 1% 10ML MDV 20 ML IJ (09:35)
[2024-02-14] MEDS: VERAPAMIL 2.5MG/ML 2ML VIAL 2.5 MG IV (09:35)
[2024-02-14] MEDS: HEPARIN 1,000 UNITS/ML 10ML VIAL (CATH LAB) 10000 UNIT IV (09:35)
[2024-02-14] MEDS: diphenhydrAMINE 50MG/ML VIAL 50 MG IV (09:35)
[2024-02-14] MEDS: NITROGLYCERIN 800MCG/8ML SYR (CATH LAB) 800 MCG IA (09:35)
[2024-02-14] MEDS: FENTANYL 100MCG/2ML VIAL 50 MCG IV (09:54)
[2024-02-14] MEDS: MIDAZOLAM HCL 1MG/1ML 5ML VIAL 1 MG IV (09:54)
[2024-02-14] MEDS: IOPAMIDOL-370 (76%);100ML BOTTLE 80 ML IV (10:39)
== END 2024-02-14 12:28 | disposition home or self-care (01) ==
PROVIDERS: PCP Family Medicine; Visit Provider Internal Medicine
DX: R94.39 Abnormal result of other cardiovascular function study (principal); R06.02 Shortness of breath; I10 Essential (primary) hypertension; E78.5 Hyperlipidemia, unspecified; I25.118 Atherosclerotic heart disease of native coronary artery with other forms of angina pectoris; Z95.5 Presence of coronary angioplasty implant and graft; E11.9 Type 2 diabetes mellitus without complications; Z79.84 Long term (current) use of oral hypoglycemic drugs; Z79.899 Other long term (current) drug therapy; Z86.16 Personal history of COVID-19; J44.9 Chronic obstructive pulmonary disease, unspecified
CPT/HCPCS: 80048; 85025; 93458; 99152; C1725; C1769; J1644; Q9967

== ENCOUNTER 2024-02-26 11:44 | Outpatient (CLI) | payer MEDICARE, MEDICAID, SELFPAY ==
[2024-02-26 12:00] LABS: Basophils # 0.1 K/mm3 (0-0.2); Basophils % 1.8 % (0.1-2.0); Eosinophils # 0.3 K/mm3 (0.0-0.4); Eosinophils % 5.8 % (0.1-12.0); Hematocrit 41.6 % (42.0-52.0); Hemoglobin 13.3 g/dL (14.1-18.0); Lymphocytes # 1.4 K/mm3 (0.7-4.5); Lymphocytes % 24.7 % (10-50); Mean Corpuscular Hemoglobin 27.2 pg (27.0-31.2); Mean Corpuscular Volume 85.2 fl (80-94); Mean Platelet Volume 8.8 fl (7.4-10.4); Monocytes # 0.3 K/mm3 (0.1-1.0); Monocytes % 5.9 % (1.7-9.3); Neutrophils # 3.5 K/mm3 (1.8-7.8); Neutrophils % 61.9 % (37.0-80.0); Platelet Count 175 K/mm3 (142-424); Red Blood Count 4.88 M/mm3 (4.60-6.20); Red Cell Distribution Width 15.7 % (11.5-17.5); White Blood Count 5.7 K/mm3 (4.8-10.8)
[2024-02-26 12:23] LABS: Alanine Aminotransferase 30 U/L (12-78); Albumin Level 3.8 g/dl (3.5-5.0); Alkaline Phosphatase 94 U/L (38-126); Anion Gap 10.7 mEq/L (5-15); Aspartate Amino Transferase 28 U/L (17-59); Bilirubin,Direct 0.3 mg/dl (0.0-0.4); Bilirubin,Indirect 0.4 mg/dL (0.0-0.9); Bilirubin,Total 0.7 mg/dl (0.2-1.3); Bilirubin,Unconjugated 0.4 mg/dL (0.0-1.1); Blood Urea Nitrogen 11 mg/dl (9-20); Calcium 8.5 mg/dl (8.4-10.2); Carbon Dioxide 24 mmol/L (22.0-30.0); Chloride 109 mmol/L (98-107); Chol/HDL Ratio 4.6 (1-3.5); Cholesterol 152 mg/dl (140-200); Estimated Glomerular Filt Rate 85 ml/min (>60); GFR (African American) 102 ML/MIN (>60); Glucose 272 mg/dl (74-100); HDL Cholesterol 33 mg/dl (40-60); Magnesium 1.6 mg/dl (1.6-2.3); Potassium 3.7 mmoL/L (3.5-5.1); Sodium 140 mmol/L (136-145); Total Protein,Serum 6.1 g/dl (6.3-8.2); Triglycerides 165 mg/dl (30-150); VLDL Cholesterol 33 mg/dL (0-40)
[2024-02-26 12:34] LABS: Direct LDL Cholesterol 89.14 mg/dL (100-129)
== END 2024-02-26 23:59 | disposition home or self-care (01) ==
LOC: LAB 11:46
PROVIDERS: PCP Family Medicine; Visit Provider Nurse Practitioner
DX: I11.9 Hypertensive heart disease without heart failure (principal); I25.10 Atherosclerotic heart disease of native coronary artery without angina pectoris; E78.2 Mixed hyperlipidemia; R06.09 Other forms of dyspnea; Z95.5 Presence of coronary angioplasty implant and graft
CPT/HCPCS: 36415; 80048; 80061; 80076; 83735; 85025

== ENCOUNTER 2024-03-24 08:48 | Outpatient (CLI) | payer MEDICARE, MEDICAID, SELFPAY ==
--- NOTE | 2024-03-24 08:54 | CT_ITS ---
FINAL REPORT TECHNIQUE: Axial images were obtained through the chest without contrast. CLINICAL HISTORY: Nodule - 6 mth F/U COMPARISON: 09/17/2023 FINDINGS: There are calcified right paratracheal and hilar lymph nodes, also seen on the prior CT of September 2023. The heart size is normal. There is no pericardial or pleural effusion. Limited images of the upper abdomen are unremarkable. There is a 7 mm nodule present in the right lower lobe, also seen on the prior CT of September, which is stable in size and appearance. No new focal nodules are identified. IMPRESSION: Stable 7 mm right lower lobe nodule as described. No new nodules are identified. Recommend 1 year follow-up CT of the chest without contrast. Reviewed, Interpreted and Dictated by Chuck Joe MD Transcribed by Paris Ang [facility]
== END 2024-03-24 23:59 | disposition home or self-care (01) ==
LOC: RAD 08:49
PROVIDERS: PCP Family Medicine; Visit Provider Internal Medicine Pulmonary Disease
DX: R91.8 Other nonspecific abnormal finding of lung field (principal)
CPT/HCPCS: 71250

== ENCOUNTER 2024-06-29 16:40 | Outpatient (CLI) | payer MEDICARE, MEDICAID, SELFPAY ==
[2024-06-29 17:22] LABS: Basophils # 0.1 K/mm3 (0-0.2); Basophils % 1.6 % (0.1-2.0); Eosinophils # 0.2 K/mm3 (0.0-0.4); Eosinophils % 3.4 % (0.1-12.0); Hematocrit 41.1 % (42.0-52.0); Hemoglobin 13.1 g/dL (14.1-18.0); Lymphocytes # 1.8 K/mm3 (0.7-4.5); Mean Corpuscular HGB Conc 31.7 g/dL (31.8-35.4); Mean Corpuscular Hemoglobin 27.5 pg (27.0-31.2); Mean Corpuscular Volume 86.7 fl (80-94); Mean Platelet Volume 8.1 fl (7.4-10.4); Monocytes # 0.4 K/mm3 (0.1-1.0); Monocytes % 5.3 % (1.7-9.3); Neutrophils # 4.6 K/mm3 (1.8-7.8); Neutrophils % 64.7 % (37.0-80.0); Platelet Count 190 K/mm3 (142-424); Red Blood Count 4.74 M/mm3 (4.60-6.20); Red Cell Distribution Width 15.2 % (11.5-17.5); White Blood Count 7.1 K/mm3 (4.8-10.8)
[2024-06-29 17:55] LABS: Chloride 106 mmol/L (98-107); Potassium 4.2 mmoL/L (3.5-5.1); Sodium 138 mmol/L (136-145)
[2024-06-29 17:58] LABS: Anion Gap 7.2 mEq/L (5-15); Blood Urea Nitrogen 22 mg/dl (9-20); Calcium 8.5 mg/dl (8.4-10.2); Carbon Dioxide 29 mmol/L (22.0-30.0); Estimated Glomerular Filt Rate 51 ml/min (>60); GFR (African American) 62 ML/MIN (>60); Glucose 147 mg/dl (74-100); Iron 82 ug/dL (49-181)
[2024-06-29 18:09] LABS: Total Iron Binding Capacity 441 ug/dL (261-462)
[2024-06-29 18:10] LABS: Total Iron Binding Capacity 442 ug/dL (261-462)
[2024-06-29 18:36] LABS: Ferritin 8.64 ng/ml (17.9-464)
== END 2024-06-29 23:59 | disposition home or self-care (01) ==
LOC: LAB 16:41
PROVIDERS: PCP Family Medicine; Visit Provider Internal Medicine
DX: I11.0 Hypertensive heart disease with heart failure (principal); I25.10 Atherosclerotic heart disease of native coronary artery without angina pectoris; I50.30 Unspecified diastolic (congestive) heart failure; Z95.5 Presence of coronary angioplasty implant and graft; R06.09 Other forms of dyspnea; E78.2 Mixed hyperlipidemia; E11.9 Type 2 diabetes mellitus without complications; Z79.84 Long term (current) use of oral hypoglycemic drugs
CPT/HCPCS: 36415; 80048; 82728; 83540; 83550; 85025

== ENCOUNTER 2024-07-10 13:34 | Outpatient (CLI) | payer MEDICARE, MEDICAID, SELFPAY ==
--- NOTE | 2024-07-10 13:39 | CA_ITS ---
APPROVED REPORT EXAM: Comprehensive 2D, Doppler, and color-flow Echocardiogram Clinical Researcher: Jaye Calvert, RCS, RVS Ht: 5 ft 9 in Wt: 225lbs BSA: 2.17 BP: 112/55 mmHg Indications: HFrEF, DM, HTN, HLD 2D Dimensions IVSd 0.86 cm LVEF (Visual) 70.60 % PWd 1.03 cm LA Volume 48.40 mL LVDd 4.84 cm LA Volume Index 22.321000 mL/m2 (M/F) 16-34 LVDs 2.90 cm EF AP4 69.50 % Aortic Root 3.22 cm GL Strain -21.8 % Left Atrium 2.86 cm RVID Base (AP4) 2.88 cm (M/F) 2.5-4.1 LVOT 1.94 cm (M/F) 1.5-2.5 M-Mode Dimensions LVDd 4.84 cm (3.5-5.7) Ao Diam 3.93 cm (2.0-3.7) LVDs 2.90 cm (3.5-5.7) IVSd 0.86 cm (0.6-1.1) PWd 1.03 cm (0.6-1.1) FS 40.10% TAPSE 1.15 (<1.7) LV Diastology E Decel Time 264 (160-240 msec) E/A Ratio 0.96 MED E' 6.4 (>= 7 cm/sec) MED A' 12.90 cm/s E'/MED E' Ratio 9.89 (<= 14) LAT E' 12.9 (>= 10 cm/sec) LAT A' 9.40 cm/s E/LAT E' Ratio 4.91 (<= 14) Aortic Valve LVOT Max 118.0 (70-110 cm/s) SONDRA Index 1.21 cm2/m2 LVOT VTI 26.82 cm AoV Peak Clayton. 132.0 (50-130 cm/s) AO Mean GR. 3.90 (<5 mmHg) AO VTI 30.3 (18-25 cm) SONDRA (VTI) 2.62 (2.5-4.5 cm2) Mitral Valve MV E Max Clayton. 63.0 (40-130 cm/s) MV A Velocity 66.0 (40-130 cm/s) E/A Ratio 0.96 MV Decel. Time 264 (160-240 ms) Tricuspid Valve TR P. Velocity 294.00 cm/s RAP Estimate 10.00 mmHg RVSP 44.60 mmHg Left Ventricle The left ventricle is normal size. The left ventricular systolic function is normal. The left ventricular ejection fraction is within the normal range. There is increased LV wall thickness. There is normal LV segmental wall motion. The left ventricular diastolic function is normal. LVEF is 60%. Right Ventricle The right ventricle is normal size. The right ventricular systolic function is normal. Atria The left atrium size is normal. The right atrium size is normal. There is no Doppler evidence of interatrial shunt. Aortic Valve The aortic valve opens well. There is no aortic valvular stenosis. No aortic regurgitation is present. Mitral Valve The mitral valve is normal in structure. No evidence of mitral valve stenosis. There is no mitral valve regurgitation noted. Tricuspid Valve Tricuspid valve is grossly normal in structure and function. Trace tricuspid regurgitation. There is insufficient TR jet to estimate RVSP. Pulmonic Valve The pulmonary valve is normal in structure. Trace pulmonic regurgitation. Great Vessels The aortic root is normal in size. The ascending aorta is normal in size. IVC is normal in size and collapses >50% with inspiration. Pericardium There is no pericardial effusion. Other Information Study Quality: Fair Conclusion Normal biventricular systolic function. No significant valvular stenosis or regurgitation. Electronically signed by : Kristan Menjivar MD 07/19/2024 11:48:15
== END 2024-07-10 23:59 | disposition home or self-care (01) ==
LOC: RT 13:36
PROVIDERS: PCP Family Medicine; Visit Provider Internal Medicine
DX: I51.89 Other ill-defined heart diseases; Z95.5 Presence of coronary angioplasty implant and graft
CPT/HCPCS: 93306

== ENCOUNTER 2024-11-24 13:52 | Outpatient (CLI) | payer MEDICARE, MEDICAID, SELFPAY ==
--- NOTE | 2024-11-24 13:53 | US_ITS ---
FINAL REPORT CLINICAL HISTORY: cellulitis and abscess of neck FINDINGS: Limited sonographic images were obtained of the neck soft tissues midline under the chin of the area of palpable abnormality. In the region of interest is mild soft tissue thickening and increased vascularity which could be related to cellulitis. There is a small anechoic focus measuring up to 3 mm in this region. The submandibular and parotid glands are unremarkable. Submental lymph nodes in this region measure up 1.2 cm. IMPRESSION: Mild soft tissue thickening and increased vascularity in the region of interest could be related to cellulitis. Reviewed, Interpreted and Dictated by Chuck Joe MD Transcribed by Kenna Garcia Authenticated and [facility]
== END 2024-11-24 23:59 | disposition home or self-care (01) ==
LOC: RAD 13:53
PROVIDERS: PCP Nurse Practitioner; Visit Provider Nurse Practitioner
DX: L03.221 Cellulitis of neck (principal); L02.11 Cutaneous abscess of neck
CPT/HCPCS: 76536

== ENCOUNTER 2024-12-16 12:37 | Outpatient (CLI) | payer MEDICARE, MEDICAID, SELFPAY ==
[2024-12-16] MEDS: ALBUTEROL 0.083% 2.5 MG/3 ML NEB IH (13:44)
== END 2024-12-16 23:59 | disposition home or self-care (01) ==
LOC: RT 12:37
PROVIDERS: PCP Nurse Practitioner; Visit Provider Internal Medicine Pulmonary Disease
DX: R06.02 Shortness of breath (principal)
CPT/HCPCS: 94060; 94726; 94729; J7613

== ENCOUNTER 2025-02-15 15:07 | Outpatient (CLI) | payer MEDICARE, MEDICAID, SELFPAY ==
[2025-02-15 15:59] LABS: Basophils # 0.1 K/mm3 (0-0.2); Basophils % 1.4 % (0.1-2.0); Eosinophils # 0.2 K/mm3 (0.0-0.4); Eosinophils % 3.1 % (0.1-12.0); Hematocrit 45.2 % (42.0-52.0); Hemoglobin 14.7 g/dL (14.1-18.0); Lymphocytes # 1.8 K/mm3 (0.7-4.5); Lymphocytes % 28.8 % (10-50); Mean Corpuscular HGB Conc 32.5 g/dL (31.8-35.4); Mean Corpuscular Hemoglobin 28.7 pg (27.0-31.2); Mean Corpuscular Volume 88.3 fl (80-94); Mean Platelet Volume 10.6 fl (7.4-10.4); Monocytes # 0.6 K/mm3 (0.1-1.0); Monocytes % 9.2 % (1.7-9.3); Neutrophils # 3.6 K/mm3 (1.8-7.8); Neutrophils % 57.2 % (37.0-80.0); Nucleated Red Blood Cells # 0 10^3/uL; Nucleated Red Blood Cells % 0 %; Platelet Count 183 K/mm3 (142-424); Red Blood Count 5.12 M/mm3 (4.60-6.20); Red Cell Distribution Width 13.3 % (11.5-17.5); White Blood Count 6.4 K/mm3 (4.8-10.8)
[2025-02-15 17:59] LABS: Albumin Level 4.4 g/dl (3.5-5.0); Chloride 102 mmol/L (98-107)
[2025-02-15 18:00] LABS: Potassium 4.5 mmoL/L (3.5-5.1); Sodium 139 mmol/L (136-145)
[2025-02-15 18:02] LABS: Alanine Aminotransferase 25 U/L (12-78); Alkaline Phosphatase 86 U/L (38-126); Anion Gap 14.5 mEq/L (5-15); Aspartate Amino Transferase 25 U/L (17-59); Bilirubin,Direct 0.3 mg/dl (0.0-0.4); Bilirubin,Indirect 0.5 mg/dL (0.0-0.9); Bilirubin,Total 0.8 mg/dl (0.2-1.3); Bilirubin,Unconjugated 0.5 mg/dL (0.0-1.1); Blood Urea Nitrogen 21 mg/dl (9-20); Carbon Dioxide 27 mmol/L (22.0-30.0); Cholesterol 178 mg/dl (140-200); Estimated Glomerular Filt Rate 67 ml/min (>60); GFR (African American) 81 ML/MIN (>60); Total Protein,Serum 6.9 g/dl (6.3-8.2); Triglycerides 220 mg/dl (30-150); VLDL Cholesterol 44 mg/dL (0-40)
[2025-02-15 18:05] LABS: Calcium 8.8 mg/dl (8.4-10.2); Chol/HDL Ratio 4.8 (1-3.5); Glucose 155 mg/dl (74-100); HDL Cholesterol 37 mg/dl (40-60); Iron 92 ug/dL (49-181)
[2025-02-15 18:14] LABS: Direct LDL Cholesterol 94.36 mg/dL (100-129)
[2025-02-15 18:21] LABS: Total Iron Binding Capacity 390 ug/dL (261-462)
[2025-02-15 18:25] LABS: Free T4 (Free Thyroxine) 1.21 ng/dl (0.78-2.19)
[2025-02-15 18:35] LABS: Thyroid Stimulating Hormone 1.38 uIU/mL (0.465-4.68)
[2025-02-15 18:40] LABS: Ferritin 35.3 ng/ml (17.9-464)
== END 2025-02-15 23:59 | disposition home or self-care (01) ==
LOC: LAB 15:08
PROVIDERS: PCP Nurse Practitioner; Visit Provider Internal Medicine
DX: R79.0 Abnormal level of blood mineral (principal); I11.0 Hypertensive heart disease with heart failure; I50.30 Unspecified diastolic (congestive) heart failure; G25.81 Restless legs syndrome; R06.09 Other forms of dyspnea; E78.2 Mixed hyperlipidemia; I25.10 Atherosclerotic heart disease of native coronary artery without angina pectoris; E11.9 Type 2 diabetes mellitus without complications
CPT/HCPCS: 36415; 80048; 80061; 80076; 82728; 83540; 83550; 84439; 84443; 85025

== ENCOUNTER 2025-02-16 09:10 | Outpatient (CLI) | payer MEDICARE, MEDICAID, SELFPAY ==
[2025-02-16 21:08] LABS: Hemoglobin A1C 6.9 % (4.0-6.0)
== END 2025-02-16 23:59 | disposition home or self-care (01) ==
LOC: LAB.DROPOF 02-19 09:12
PROVIDERS: PCP Nurse Practitioner; Visit Provider Nurse Practitioner
DX: E11.9 Type 2 diabetes mellitus without complications (principal); Z79.84 Long term (current) use of oral hypoglycemic drugs
CPT/HCPCS: 83036

== ENCOUNTER 2025-08-17 14:21 | Outpatient (CLI) | payer MEDICARE, MEDICAID, SELFPAY ==
--- NOTE | 2025-08-17 14:24 | XR_ITS ---
FINAL REPORT CLINICAL HISTORY: wrist pain FINDINGS: AP, oblique, and lateral views of the left wrist were obtained. There is no prior exam for comparison. There is no acute fracture or dislocation. Degenerative joint disease is noted. There are subchondral cysts in the distal radius and scaphoid. There is dorsal soft tissue edema. IMPRESSION: No acute osseous abnormality of the left wrist. Degenerative/chronic changes and soft tissue edema. Reviewed, Interpreted and Dictated by Yamileth Tai MD Transcribed by Kenna Garcia Authenticated and [facility]
--- OUTSIDE RECORDS SUMMARY | 2025-08-17 14:25 | XMS_ITS | Encounter Summary ---
Author Organization [place] [address] Care Team Providers Care Pusher Operator Name Role Phone Dee Lao Primary Care Provider [phone] Encounter Details Date Type Department Care Team (Late st Contact Info) Description 03/14/2016 Orders Only SEP Gastro [facility] [address] [facility] [address] [place] [address] Adonis Ballard MD [address] [place] [address] Social History Tobacco Use Types Packs/Day Years Used Date Smoking Tobacco: Former Alcohol Use Standard Drinks/Week Comments No 0 (1 standard drink = 0.6 oz pur e alcohol) Sex and Gender Information Value Date Recorded Sex Assigned at Not on file Legal Sex Male 5:06 AM EDT Gender Identity Not on file Sexual Orientation Not on file documented as of this encounter Plan of Treatment Not on file documented as of this encounter Procedures Procedure Name Priority Date/Time Associated Diagnosis Comments GMED COLONOSCOPY Routine 03/14/2016 9:30 AM EDT documented in this encounter Results * GMED COLONOSCOPY (03/14/2016 9:30 AM EDT) 03/14/2016 9:30 AM EDT Impressions [facility] - 03/14/2016 9:59 AM EDT Polyp (4 mm) in the rectum. (Polypectomy). Plan: Colonoscopy in 5 years due to previous history of polyps. Follow-up with referring provider / physician This section is an excerpt of the full report. us Adonis Ballard MD GI PROCEDURE ORDERABLES Fin al Result [facility] [address] [place] [address] documented in this encounter Visit Diagnoses Not on filedocumented in this encounter Care Teams Pusher Operator Relationship Specialty Start Date End Date Dee Lao [address] [place] [address] PCP - General Family Medicine 03/14/16 documented as of this encounter
--- OUTSIDE RECORDS SUMMARY | 2025-08-17 14:25 | XMS_ITS | Clinical Summary ---
[facility] Address [address] [place] [address] Care Team Providers Care Application Support Name Role Phone Provider, No Known Primary Care Provider Unavail able Social History Tobacco Use Types Packs/Day Years Used Date Smoking Tobacco: Never Assessed Abuse Screen Answer Date Recorded Unsafe at Home or Work/School Not on file Feels Threatened by Someone? Not on file 07/2023 Does Anyone Keep You from Co ntacting Others or Doint Things Outside the Home? Not on file 08/12/2023 Physical Sign of Abuse Present Not on file 1 Housing Stability Answer Date Recorded Current Living Arrangements Not on file 07/2023 Potentially Unsafe Housing Conditions Not on marlon e 08/12/2023 Family and Community Support Answer Taran e Recorded Help with Day-to-Day Activities Not on file 08/12/2023 Lonely or Isolated Not on file 08/12/2023 Employment Answer Date Recorded Do you want help finding or keeping work or a natalie b? Not on file 08/12/2023 Disabilities Answer Date Recorded Concentrating, Remembering, or Making Decisions Difficulty Not on file 08/12/2023 Doing Errands Independently Difficulty Not on fi le 08/12/2023 Education Answer Date Recorded Help with school or training? Not on file Preferred Language Not on file 08/12/2023 Sex and Gender Information Value Date Recorded Sex Assigned at Not on file Legal Sex Male 12:08 PM EDT Gender Identity Not on file Sexual Orientation Not on file Plan of Treatment Health Maintenance Due Date Last Done Comments ANNUAL PHYSICAL 1960 HEPATITIS C SCREENING 1960 TDAP/TD VACCINES (1 - Tdap) 1977 COLOGUARD 2003 COLON CANCER SCREENING 5 YEAR SIGMOIDOSCOPY 2003 COLONOSCOPY 2003 COL[address] CANCER SCREENING 2003 CT COLONOGRAPHY 2003 FECAL OCCULT BLOOD TEST 2003 FIT Testing (1 year) 2003 Pneumococcal Vaccine 50+ (1 of 1 - PCV) 2008 ZOSTER VACCINE (1 of 2) 2008 AAA SCREEN ONCE 2023 INFLUENZA VACCINE 06/04/2025 COVID-19 Vaccine ( season) 2025 Care Teams Application Support Relationship Specialty Start Date End Date Provider, [place] [address] PCP - General 08/25/15
--- OUTSIDE RECORDS SUMMARY | 2025-08-17 14:25 | XMS_ITS | Clinical Summary ---
Author Organization [facility] Address [address] [place] [address] Phone Care Team Providers Care Newspaper Carriers Supervisor Name Role Phone Dee Lao Primary Care Provider [phone] Allergies Active Allergy Reactions Criticality Noted Date Comments Morphine Rash 01/27/2015 Medications metFORMIN (GLUCOPHAGE) 500 mg Oral Tablet Take 1,000 mg by mouth 2 times daily. Active gabapentin (NEURONTIN) 300 mg Oral Capsule Take 600 mg by mouth nightly. Active pramipexole (MIRAPEX) 0.25 mg Oral Tablet Take 0.25 mg by mouth 3 times daily. Active PARoxetine (PAXIL) 40 mg Oral Tablet Take 40 mg by mouth every morning. Active GLIPIZIDE ORAL Take by mouth. Active SIMVASTATIN ORAL Take by mouth. Activ e oxyCODONE-aceta minophen (PERCOCET) 5-325 mg Oral Tablet Take 1-2 Tabs by mouth every 4 hours as needed for Pain. 20 Tab 0 5 Active Additional Information Patient not taking.Reported on 04/23/2020 tiotropium (SPIRIVA) 18 mcg Inhl Capsule, w/Inhalation Device Inhale 18 mcg into the lungs daily. Active sulindac (CLINORIL) 200 mg Oral Tablet Take 200 mg by mouth 2 times daily. Active fUROsemide (LASIX) 20 mg Oral Tablet Take 20 mg by mouth two times a week. Sat/sat Active lansoprazole (PREVACID) 30 mg Oral Capsule, Delayed Release(E.C.) Take 30 mg by mouth daily. Active atorvastatin (LIPITOR) 80 mg Oral Tablet Take 80 mg by mouth daily. Active albuterol (PROVENTIL HFA;VENTOLIN HFA) 90 mcg/actuation Inhl HFA Aerosol Inhaler Inhale 2 Puffs into the lungs every 6 hours as needed for Wheezing. Active Pramipexole (MIRAPEX) 0.75 mg Oral Tablet Take 0.75 mg by mouth nightly. Active glimepiride (AMARYL) 4 mg Oral Tablet Take 8 mg by mouth every morning (before breakfast). Active metoprolol succinate (TOPROL-XL) 25 mg Oral Tablet Sustained Release 24 hr Take 25 mg by mouth daily. Active dapagliflozin (FARXIGA) 5 mg Oral Tablet Take 5 mg by mouth daily. Active aspirin 81 mg Oral Tablet, Delayed Release (E.C.) Take 81 mg by mouth daily. Active ticagrelor (BRILINTA) 90 mg Oral Tablet Take 90 mg by mouth 2 times daily. Active tamsulosin (FLOMAX) 0.4 mg Oral Capsule Take 0.4 mg by mouth daily. Active Surgical History Surgery Date Site/Laterality Comments BACK SURGERY Medical History Medical History Date Comments Diabetes mellitus (HCC) Asthma COPD (chronic obstructive pulmonary disease) (HC C) Anxiety Depression RLS (restless legs syndrome) GERD (gastroesophageal reflux disease) HLD (hyperlipidemia) Hypertension Social History Tobacco Use Types Packs/Day Years Used Date Smoking Tobacco: Former Smokeless Tobacco: Never Alcohol Use Standard Drinks/Week Comments No 0 (1 standard drink = 0.6 oz pur e alcohol) Sex and Gender Information Value Date Recorded Sex Assigned at Not on file Legal Sex Male 5:06 AM EDT Gender Identity Not on file Sexual Orientation Not on file Last Filed Vital Signs Vital Sign Reading Time Taken Comments Blood Pressure 142/73 07/10/2020 1:40 PM EDT Pulse 66 07/10/2020 1:40 PM EDT Temperature 37.1 C (98.8 F) 07/10/2020 1:40 PM EDT Respiratory Rate 18 07/10/2020 1:40 PM EDT Oxygen Saturation 98% 07/10/2020 1:40 PM EDT Inhaled Oxygen Concentration - - Weight 104.3 kg (230 lb) 07/10/2020 1:40 PM EDT Height 175.3 cm (5' 9 ) 07/10/2020 1:40 PM EDT Body Mass Index 33.97 07/10/2020 1:40 PM EDT Plan of Treatment Health Maintenance Due Date Last Done Comments Wellness Exam Medicare 1961 Hepatitis C Screening 1976 DTaP/TDaP/Td (1 - Tdap) 1977 Cologuard 2003 FIT 2003 Sigmoidoscopy 2003 Virtual Colonography 2003 Pneumococcal Vaccine 50+ (1 of 1 - PCV) 2008 Zoster (1 of 2) 2008 RSV or 60+ (1 - Ris k 60-74 years 1-dose series) 2018 COVID-19 Vaccine (1 - 2023-2 5 season) 2025 Influenza Vaccine (#1) 2025 Colon Cancer Screening 03/14/2026 Colonoscopy 03/14/2026 03/14/2016 Hepatitis B Vaccine Aged Out No longe r eligible based on patient's age to complete this topic Meningococcal B Vaccine Aged Out No l onger eligible based on patient's age to complete this topic Procedures Procedure Name Priority Date/Time Associated Diagnosis Comments GMED COLONOSCOPY Routine 03/14/2016 9:30 AM EDT from Last 3 Months or Most Recently Relevant to Health Maintenance Results * GMED COLONOSCOPY (03/14/2016 9:30 AM EDT) 03/14/2016 9:30 AM EDT Impressions [facility] - 03/14/2016 9:59 AM EDT Polyp (4 mm) in the rectum. (Polypectomy). Plan: Colonoscopy in 5 years due to previous history of polyps. Follow-up with referring provider / physician This section is an excerpt of the full report. Adonis Ballard MD GI PROCEDURE ORDERABLES Fin al Result [facility] 1 [place] [address] from Last 3 Months or Most Recently Relevant to Health Maintenance Insurance [place] PART A [place] B [place]IC[place] PART [place] B Care Teams Newspaper Carriers Supervisor Relationship Specialty Start Date End Date Dee Lao [address] [place] [address] [address] [place] [address] PCP - General Family Medicine 03/14/16
[2025-08-17 16:00] LABS: Hematocrit 44.9 % (42.0-52.0); Hemoglobin 14.4 g/dL (14.1-18.0); Immature Granulocytes % 0.3 %; Mean Corpuscular HGB Conc 32.1 g/dL (31.8-35.4); Mean Corpuscular Hemoglobin 27.9 pg (27.0-31.2); Mean Corpuscular Volume 87.0 fl (80-94); Nucleated Red Blood Cells % 0 %; Platelet Count 193 K/mm3 (142-424); Red Blood Count 5.16 M/mm3 (4.60-6.20); Red Cell Distribution Width-SD 44.8 fL; White Blood Count 6.7 K/mm3 (4.8-10.8)
[2025-08-17 16:24] LABS: Albumin Level 3.6 g/dl (3.5-5.0); Chloride 97 mmol/L (98-107); Potassium 4.0 mmoL/L (3.5-5.1); Sodium 134 mmol/L (136-145)
[2025-08-17 16:26] LABS: Alanine Aminotransferase 26 U/L (12-78); Anion Gap 11.0 mEq/L (5-15); Aspartate Amino Transferase 19 U/L (17-59); Bilirubin,Unconjugated 0.4 mg/dL (0.0-1.1); Blood Urea Nitrogen 13 mg/dl (9-20); Carbon Dioxide 30 mmol/L (22.0-30.0); Creatinine,Serum 1.00 mg/dl (0.66-1.25); Estimated Glomerular Filt Rate 75 ml/min (>60); GFR (African American) 90 ML/MIN (>60)
[2025-08-17 16:27] LABS: Alkaline Phosphatase 93 U/L (38-126); Bilirubin,Direct 0.0 mg/dl (0.0-0.4); Bilirubin,Indirect 0.4 mg/dL (0.0-0.9); Bilirubin,Total 0.4 mg/dl (0.2-1.3); Calcium 8.2 mg/dl (8.4-10.2); Cholesterol 182 mg/dl (140-200); Glucose 290 mg/dl (74-100); HDL Cholesterol 40 mg/dl (40-60); Iron 74 ug/dL (49-181); Magnesium 2.0 mg/dl (1.6-2.3); Total Protein,Serum 6.2 g/dl (6.3-8.2)
[2025-08-17 16:30] LABS: Triglycerides 422 mg/dl (30-150)
[2025-08-17 16:42] LABS: Total Iron Binding Capacity 328 ug/dL (261-462)
[2025-08-17 16:43] LABS: Free T4 (Free Thyroxine) 0.99 ng/dl (0.78-2.19)
[2025-08-17 16:58] LABS: Thyroid Stimulating Hormone 1.39 uIU/mL (0.465-4.68)
[2025-08-17 17:03] LABS: Ferritin 25.6 ng/ml (17.9-464)
== END 2025-08-17 23:59 | disposition home or self-care (01) ==
LOC: LAB 14:22
PROVIDERS: PCP Nurse Practitioner; Visit Provider Internal Medicine
DX: M19.032 Primary osteoarthritis, left wrist (principal); I25.10 Atherosclerotic heart disease of native coronary artery without angina pectoris; I10 Essential (primary) hypertension; R79.0 Abnormal level of blood mineral; M25.432 Effusion, left wrist
CPT/HCPCS: 36415; 73100; 80048; 80061; 80076; 82728; 83540; 83550; 83735; 84439; 84443; 85025

== ENCOUNTER 2025-08-25 09:25 | Outpatient (CLI) | payer MEDICARE, MEDICAID, SELFPAY ==
--- OUTSIDE RECORDS SUMMARY | 2024-07-22 05:30 | XMS_ITS ---
Author Organization [facility] Address [address] [facility] [address] [place] [id number] Care Team Providers Care Blend Technician Name Role Phone Nathanael Barrientos Primary Care Provider [phone] NATHANAEL BARRIENTOS Unavailable Unavailable Allergies Allergen (clinical [...] Normal Performing Lab: Notes/Report: Test performed by [facility] , [address], [place] [address] Rick Blevins MD, Swing Ride Operator CLIA: [id number] Sodium 140 135-145 mmol/L Potassium 4.4 3.5-5.3 [...] 138 Performing Lab: Notes/Report: Test performed by [facility], [address] , [facility], [place] [address] Rick Blevins MD, Swing Ride Operator CLIA: [id number] Cholesterol 177 <200 mg/dL Triglycerides 110 <150 [...] Normal Performing Lab: Notes/Report: Test performed by [facility] [address] [place] [address] , [facility], [place] [address] Rick Blevins MD, Swing Ride Operator CLIA: [id number] PSA 3.07 <4.00 ng/mL Please note this is an ultrasensitive PSA assay with a lower limit of detection of 0.014 ng/mL. This test is performed by the Dari ECLIA methodology. Values obtained with different assay methods or kits cannot be directly compared. P-TSH reflex to FT4 Reviewed date:07/23/2024 08:27:08 AM Interpretation: Normal Performing Lab: Notes/Report: Test performed by [facility] [address] [place] [address] [address] , [place] [address] Rick Blevins MD, Swing Ride Operator CLIA: [id number] TSH reflex to FT4 2.29 0.43-5.25 mU/L P-Microalbumin/Creatinine, R andom Urine Sample Reviewed date:07/23/2024 08:27:08 AM Interpretation: Normal Performing Lab: Notes/Report: Test performed by [facility] [address] [place] [address] , [address] , [place] [address] Rick Blevins MD, Swing Ride Operator CLIA: [id number] Albumin/Creatinine Ratio, Urine 19 0-30 ug/m g [...] Problem History of polyp of colon (situation) (394048710) Hx of colonic polyps (Z86.010) Active confirmed Vital Signs Blood pressure systolic 92 mm Hg 07/22/20 24 Blood pressure diastolic 50 mm Hg 024 Heart Rate 66 /min 07/22/2024 Height 68 in 07/22/2024 Weight 223 lbs 07/22/2024 BMI 33.90 kg/m2 07/22/2024 Encounters Encounter Location Date Provider Diagnosis [facility] [address] [place] [phone] 07/22/2024 Nathanael Barrientos Type 2 diabetes sidney [...] PEGGY WALLACE JRDOB: 8 (64 yo M)Acc No.[id number]:07/22/2024 Progress Notes Patient: Etelvina MITRADEAN PEGGY BRO Provider: Evens Barrientos M.D. :1960 A ge:63 Y S ex:Male Date:07/22/2024 Address:[address] [place], [id number] Subjective: * Chief Complaints: * 1 . [...] , rotator cuff tear repair lt 04/20/2015, [facility]- lumbar microdiscectomy 07/27/2020. * Hospitalization/Major Diagno stic Procedure: D [place] , [facility] ER 07/05/2016. * Family History: F ather: [...] G 2211 Complex e/[place], [address] GLUCOSE TEST, 88286 GLYCATED HEMOGLOBIN TEST, Modifiers: QW * Follow Up: 6 Months * Images: Billing Information: * Visit Code: 31775 Office Visit, Est Pt., Level 4. * Procedure Codes: G2211 Complex e/[place]. [address] GLUCOSE TEST. 85771 GLYCATED HEMOGLOBIN TEST. Modifiers: QW * Electronic signature of Becky Barrientos MD on 08/26/2025 at 12:43 PM EDT Sign off status: Pending * Provider: Evens Barrientos M.D. Date: 0 07/22/2024 Generated for Josselyn christopher/Maurice/Trungsmitting on: 1 12:43 PM EDT History and Physical Notes * HPI [...]
--- OUTSIDE RECORDS SUMMARY | 2025-01-20 05:45 | XMS_ITS ---
Author Organization [place] Address [facility] [facility] [address] [place] [id number] Care Team Providers Care Market Basket Maker Name Role Phone Nathanael Barrientos Primary Care Provider [phone] NATHANAEL BARRIENTOS Unavailable Unavailable Allergies Allergen (clinical drug ingredient) Drug/Non Drug Allergy documented on EMR Reaction Allergy Type Onset Date Status morphine Morphine Unknown Drug Allergy Active tolmetin Tolmetin Unknown Drug Allergy Active REASON FOR VISIT 6 months Encounters Encounter Location Date Provider Diagnosis [facility] [address] [place] [phone] 01/20/2025 Nathanael Barrientos Plan Of Treatment No Information Progress Notes * PEGGY WALLACE JRDOB: 8 (64 yo M)Acc No.[id number]:01/20/2025 Progress Notes Patient: Etelvina GALEANO PEGGY BRO Provider: Evens Barrientos M.D. :1960 A ge:64 Y S ex:Male Date:01/20/2025 Address:[address] [place] [place], [id number] Subjective: * Chief Complaints: * 1 . [...] , rotator cuff tear repair lt 04/20/2015, [facility]- lumbar microdiscectomy 07/27/2020. * Hospitalization/Major [...] 0 01/20/2025 Generated for Josselyn christopher/Maurice/eTtomsmitting on: 12:43 PM EDT History and Physical Notes [...]
[2025-08-25 15:45] LABS: Hemoglobin A1C 6.7 % (4.0-6.0)
[2025-08-25 16:36] LABS: Hepatitis C Ab Qual. W/ RFX NEGATIVE (Negative)
--- OUTSIDE RECORDS SUMMARY | 2025-08-26 12:43 | XMS_ITS | Patient Health Record ---
[facility] [address] [place] [id number] Care Team Providers Care Floral Design Teacher Name Role Phone Nathanael Barrientos Primary Care Provider [phone] NATHANAEL BARRIENTOS Unavailable Unavailable Allergies Allergen (clinical drug ingredient) Drug/Non Drug Allergy documented on EMR Reaction Allergy Type Onset Date Status morphine Morphine Unknown Drug Allergy Active tolmetin Tolmetin Unknown Drug Allergy Active Medications Medication SIG (Take, Route, Frequency, Duration) Notes Start Date End Date Status ProAir Digihaler 108 (90 Base) MCG/ACT 2 puff(s) inhaled 4 times a day; Duration: 90 days Active metFORMIN HCl 1000 MG 1 tab(s) orally on ce daily; Duration: 90 days Active Breo Ellipta 100-25 MCG/ACT 1 puff(s) in haled once a day; Duration: 90 days Active Aspirin 81 MG 1 tab(s) orally once a day Active Brilinta 60 MG 1 tab(s) orally 2 ti mes a day Active Gabapentin 300 MG 2 cap(s) orally 2 ti mes a day; Duration: 90 days 02/24/2024 Active Lipitor 80 MG 1 tab(s) orally once a day (at bedtime) Active Tamsulosin HCl 0.4 MG 1 cap(s) orally on ce a day; Duration: 90 days Active Farxiga 10 MG 1 tab(s) Orally once a day; Duration: 90 days Active Sulindac 200 MG 1 tab(s) orally 2 ti mes a day; Duration: 90 days Active Glimepiride 4 MG TAKE 1 TABLET ORALLY ONCE DAILY; Duration: 90 Active Pramipexole Dihydrochloride 0.25 MG TAKE 1/2 TABLET BY MOUTH IN THE MORNING AND 3 TABS IN THE EVENING; Duration: 90 Active Omeprazole 40 MG 1 cap(s) orally once a day 08/09/2021 Active Metoprolol Succinate ER 25 MG TAKE 1 TAB LET BY MOUTH DAILY; Duration: 90 Active Clotrimazole 1 % 1 latia applied topica lly 2 times a day 02/14/2022 Active Immunizations Vaccine Route Administration Date Status Comme nts Tetanus Tdap-Adacel (over 7yrs) Unknown 04/16/2013 Administered Tetanus Tdap-Adacel (over 7yrs) IM Intramuscular 04/21/2018 Administered Prevnar (PCV20) IM Intramuscular 07/22/2024 Administered PNEUMOVAX 23 VACCINE Unknown 04/21/2018 Refused Fluzone High Dose (65yr and older) IM Intramuscular 07/22/2024 Administered Problems Problem Type SNOMED Code ICD Code Onset Dates Problem Status W/U Status Risk Notes Problem Gout (95274057) Gout NOS (274.9) Active confirm ed Problem Low back pain (938638460) Low back pain (724.2) Active confirmed Problem Coronary arteriosclerosis (55423551) ASCVD (arteriosclerotic cardiovascular disease) (I25.10) Active confirmed Problem Type 2 diabetes mellitus (79068240) Type 2 diabetes mellitus (E11.9) Active confirmed Problem COPD - Chronic obstructive pulmonary disease (99652667) COPD (chronic obstructive pulmonary disease) (J44.9) Active confirmed Problem Essential hypertension (51074063) Essential hypertension (I10) Active confirmed Problem Acute exacerbation of chronic obstructive airways disease (100733270) COPD with exacerbation (J44.1) Active confirmed Problem Restless legs syndrome (39118997) Restless leg syndrome (G25.81) Active confirmed Problem Chronic pain (48175126) Other chronic pain (G89.29) Active confirmed Problem Sciatica (79274806) Lumbago with sciatica, left side (M54.42) Active confirmed Problem Balanitis (60437901) Balanitis (N48.1) Active confirmed Problem Depressive disorder (16744272) Depressive disorder (F32.9) Active confirmed Problem History of polyp of colon (situation) (696703505) Hx of colonic polyps (Z86.010) Active confirmed Problem History of placement of stent for coronary artery disease (situation) (294534969) History of heart artery stent (Z95.5) Active confirmed Problem COPD - Chronic obstructive pulmonary disease (71127124) Chronic obstructive pulmonary disease, unspecified COPD type (J44.9) Active confirmed Problem Gastroesophageal reflux disease (762351910) Gastroesophageal reflux disease, esophagitis presence not specified (K21.9) Active confirmed Problem Obstructive sleep apnea syndrome (88411820) BUCK (obstructive sleep apnea) (G47.33) Active confirmed Problem Hyperlipidaemia (80428487) Hyperlipidemia, unspecified hyperlipidemia type (E78.5) Active confirmed Problem Anginal equivalent (768201437086350950 ) Anginal equivalent (I20.8) Active confirmed Problem Diabetic peripheral neuropathy (584788192) Diabetic peripheral neuropathy (E11.42) Active confirmed Problem Obese class II (066387883418791) BMI 37.0-37.9, adult (Z68.37) Active confirmed Problem Type II diabetes mellitus without complication (414344334) Type 2 diabetes mellitus without complication, without long-term current use of insulin (E11.9) Active confirmed Problem Solitary nodule of lung (717532491) Lung nodule < 6cm on CT (R91.1) Active confirmed Problem Hyperglycemia due to type 2 diabetes mellitus (066232772814057) Uncontrolled type 2 diabetes mellitus with hyperglycemia (E11.65) Active confirmed Encounters Encounter Location Date Provider Diagnosis [facility] [address] [facility] [address] [place] [phone] 05/28/2025 Nathanael Barrientos Plan Of Treatment Pending Test Test Name Order Date colonoscopy 07/22/2024 P-Comprehensive Metabolic Panel (CMP) P-Hemoglobin A1C 07/17/2023 P-Lipid Panel 07/17/2023 P-TSH reflex to FT4 07/17/2023 P-Microalbumin/Creatinine, Random Urine Sample 07/17/2023 P-Uric Acid 07/17/2023 Insurance Providers Payer Name Payer Address Payer Phone Subscriber Number Group Number Insured Name Patient Relationship to Insured Coverage Start Date Coverage End Date [employer] MEDICARE [address] [place] [address] [id number] PEGGY WALLACE JR Self - patient is the insured [facility] MEDICARE [address] [place] [address] [phone] [id number] EPGGY WALLACE JR Self - patient is the insured Medications Administered Medication Instructions Date of Administration Dosage Notes celestone 08/02/2005 1 mL Depo- Medrol 40 mg/ml 11/13/2005 Depo- Medrol 40 mg/ml 12/20/2005 1.5 mL Depo- Medrol 40 mg/ml 05/30/2006 1.5 mL Depo- Medrol 40 mg/ml 03/19/2007 1.5 mL Depo- Medrol 40 mg/ml 09/10/2007 1.5 mL Depo- Medrol 40 mg/ml 05/31/2009 1.5 mL Depo- Medrol 40 mg/ml 02/08/2014 1.5 mL Dexamethasone 12/31/2016 1 mL Medical (General) History Medical History History ICD Code DVT Type 2 DM Asthma ASCVD Hyperlipidemia Restless leg syndrome Right wrist fracture 11/08 BUCK colonoscopy 2016 - one polyp Declines pneumonia vaccine - 04/2018 Lumbar Disc Disease Lumbar facet arthropathy Lumbar Spinal Stenosis, MRI April 2020 cardiac cath with stent placed 08/2019 Surgical History Surgery Date(Month/Year) Lumbar disc x 3 Arthroscopy rt leg rotator cuff tear repair lt 04/20/2015 [facility]- lumbar microdiscectomy 07/27/2020 Hospitalization History Reason Date(Month/Year) DVT H ER 07/05/2016
--- OUTSIDE RECORDS SUMMARY | 2025-08-26 12:43 | XMS_ITS | Clinical Summary ---
Author Organization [facility] Address [address] [place] [address] Phone Care Team Providers Care Process Owner Name Role Phone Dee Lao Primary Care Provider [phone] Allergies Active Allergy Reactions Criticality Noted Date [...] 50+ (1 of 1 - PCV) 2008 RSV or 60+ (1 - Ris k 50-74 years 1-dose series) 2008 Zoster (1 of 2) 2008 COVID-19 Vaccine (1 - 2024-2 6 season) 2025 Influenza Vaccine (#1) 2025 Colon Cancer Screening 03/14/2026 Colonoscopy 03/14/2026 03/14/2016 Hepatitis B Vaccine Aged Out No longe r eligible based on patient's age to complete this topic Meningococcal B Vaccine Aged Out No l onger eligible based on patient's age to complete this topic Procedures Procedure Name Priority Date/Time Associated Diagnosis Comments ED COLONOSCOPY Routine 03/14/2016 9:30 AM EDT from Last 3 Months or Most Recently Relevant to Health Maintenance Results * GMED COLONOSCOPY (03/14/2016 9:30 AM EDT) 03/14/2016 9:30 AM EDT Impressions [facility] - 03/14/2016 9:59 AM EDT Polyp (4 mm) in the rectum. (Polypectomy). Plan: Colonoscopy in 5 years due to previous history of polyps. Follow-up with referring provider / physician This section is an excerpt of the full report. Adonis Ballard MD GI PROCEDURE ORDERABLES Fin al Result [facility] 1 [place] [address] from Last 3 Months or Most Recently Relevant to Health Maintenance Insurance [place]ICARE [place] Care Teams Process Owner Relationship Specialty Start Date End Date Dee Lao [address] [place] [address] [address] [place] [address] PCP - General Family Medicine 03/14/16
--- OUTSIDE RECORDS SUMMARY | 2025-08-26 12:43 | XMS_ITS | Clinical Summary ---
[facility] [address] [place] [address] Care Team Providers Care Polymer Chemist Name Role Phone Provider, No Known Primary [...] COVID-19 Vaccine ( season) 2025 Care Teams Polymer Chemist Relationship Specialty Start Date End Date Provider, [place] [address] PCP - General 08/25/15
--- OUTSIDE RECORDS SUMMARY | 2025-08-26 12:44 | XMS_ITS | Encounter Summary ---
Author Organization [place] [address] Care Team Providers Care Backshoe Person Name Role Phone Dee Lao Primary Care Provider [phone] Encounter Details Date Type Department Care Team (Late st Contact Info) Description 03/14/2016 Orders Only SEP Gastro [facility] [address] [facility] [address] [place] [address] Adonis Ballard MD [address] [place] [address] Social History Tobacco Use Types Packs/Day Years [...] AM EDT) 03/14/2016 9:30 AM EDT Impressions [facility] - 03/14/2016 9:59 AM EDT Polyp (4 mm) in the rectum. (Polypectomy). Plan: Colonoscopy in 5 years due to previous history of polyps. Follow-up with referring provider / physician This section is an excerpt of the full report. us Adonis Ballard MD GI PROCEDURE ORDERABLES Fin al Result [facility] 1 [place] [address] documented in this encounter Visit Diagnoses Not on filedocumented in this encounter Care Teams Backshoe Person Relationship Specialty Start Date End Date Dee Lao [address] [place] [address] PCP - General Family Medicine 03/14/16 documented as of this encounter
== END 2025-08-25 23:59 | disposition home or self-care (01) ==
LOC: LAB.DROPOF 08-26 12:41
PROVIDERS: PCP Nurse Practitioner; Visit Provider Nurse Practitioner
DX: E11.9 Type 2 diabetes mellitus without complications (principal); Z12.5 Encounter for screening for malignant neoplasm of prostate; Z11.59 Encounter for screening for other viral diseases
CPT/HCPCS: 83036; 86803; 87389; G0103

== ENCOUNTER 2025-09-01 07:22 | Outpatient (CLI) | payer MEDICARE, MEDICAID, SELFPAY ==
--- OUTSIDE RECORDS SUMMARY | 2024-07-22 05:30 | XMS_ITS ---
Author Organization [facility] Address [address] [facility] [address] [place] [id number] Care Team Providers Care Health Editor Name Role Phone Nathanael Barrientos Primary Care Provider NATHANAEL BARRIENTOS Unavailable Unavailable Allergies Allergen (clinical drug ingredient) Drug/Non Drug Allergy documented on EMR Reaction Allergy Type Onset Date Status morphine Morphine Unknown Drug Allergy Active tolmetin Tolmetin Unknown Drug Allergy Active Results Component Value Reference Range Notes Glucose (In-House) Reviewed date:07/23/2024 08:27:08 AM Interpretation:114 Performing Lab: Notes/Report: 114 blood glucose 114 74 - 106 mg/dL Glycohemoglobin A1c (in hous e) Reviewed date:07/23/2024 08:27:08 AM Interpretation:7.7 Performing Lab: Notes/Report: 7.7 glycohemoglobin 7.7% 5 - 6.5 % P-Comprehensive Metabolic Pa asael (CMP) Reviewed date:07/23/2024 08:27:08 AM Interpretation: Normal Performing Lab: Notes/Report: Test performed by [facility] , [address], [place] [address] Rick Blevins MD, Business Objects Consultant CLIA: [id number] Sodium 140 135-145 mmol/L Potassium 4.4 3.5-5.3 mmol/L Chloride 101 97-108 mmol/L CO2 28 22-32 mmol/L Glucose 97 65-99 mg/dL BUN 18 8-23 mg/dL Creatinine 1.09 0.70-1.30 mg/dL Calcium 9.5 8.6-10.4 mg/dL eGFR by Creatinine 75 >59 mL/min/1.73m2 Protein 6.6 6.0-8.3 g/dL Albumin 4.4 3.5-5.3 g/dL Alkaline Phosphatase 106 40-129 IU/L ALT (SGPT) 21 <5-55 IU/L AST (SGOT) 18 <5-46 IU/L Bilirubin, Total 0.6 <0.2-1.2 mg/dL A/G Ratio 2.0 1.1-2.5 P-Lipid Panel Reviewed date:07/23/2024 08:27:08 AM Interpretation:hdl 39, non-hdl 138 Performing Lab: Notes/Report: Test performed by [email or web address], [address] , [facility], [place] [address] Rick Blevins MD, Business Objects Consultant CLIA: [id number] Cholesterol 177 <200 mg/dL Triglycerides 110 <150 mg/dL HDL Cholesterol 39 >39 mg/dL Cholesterol / HDL Ratio 4.54 0.00-4.99 Ratio Non-HDL Cholesterol 138 <130 mg/dL LDL Cholesterol (Calculation) 116 <130 mg/dL 190 mg/dL and above Very High * Categories as recommended by the 2004 ATPIII guidelines LDL Cholesterol Levels* Less than 100 mg/dL Optimal 100 to 129 mg/dL Near Optimal/ Above Optimal 130 to 159 mg/dL Borderline High 160 to 189 mg/dL High LDL/HDL Ratio 3.0 <3.3 Ratio LDL Cholesterol Patient History Test Date: 07/19/2023 LDL Results: 88 Units: mg/dL % Change: - Test Date: 07/22/2024 LDL Results: 116 Units: mg/dL % Change: +31% P-PSA Reviewed date:07/23/2024 08:27:08 AM Interpretation: Normal Performing Lab: Notes/Report: Test performed by [facility] [address] [place] [address] , [facility], [place] [address] Rick Blevins MD, Business Objects Consultant CLIA: [id number] PSA 3.07 <4.00 ng/mL Please note this is an ultrasensitive PSA assay with a lower limit of detection of 0.014 ng/mL. This test is performed by the Dari ECLIA methodology. Values obtained with different assay methods or kits cannot be directly compared. P-TSH reflex to FT4 Reviewed date:07/23/2024 08:27:08 AM Interpretation: Normal Performing Lab: Notes/Report: Test performed by [facility] [address] [place] [address] [address] , [place] [address] Rick Blevins MD, Business Objects Consultant CLIA: [id number] TSH reflex to FT4 2.29 0.43-5.25 mU/L P-Microalbumin/Creatinine, R andom Urine Sample Reviewed date:07/23/2024 08:27:08 AM Interpretation: Normal Performing Lab: Notes/Report: Test performed by [facility] [address] [place] [address] , [address] , [place] [address] Rick Blevins MD, Business Objects Consultant CLIA: [id number] Albumin/Creatinine Ratio, Urine 19 0-30 ug/m g Microalbumin, Urine, Random 0.3 Creatinine, Urine 16.0 REASON FOR VISIT 6 months Medications Medication SIG (Take, Route, Frequency, Duration) Notes Start Date End Date Status Sulindac 200 MG 1 tab(s) orally 2 ti mes a day; Duration: 90 days Active Glimepiride 4 MG 1 tabs orally once a day; Duration: 90 days Active Tamsulosin HCl 0.4 MG 1 cap(s) orally on ce a day; Duration: 90 days Active Gabapentin 300 MG 2 cap(s) orally 2 ti mes a day; Duration: 90 days 02/24/2024 Active Lipitor 80 MG 1 tab(s) orally once a day (at bedtime) Active Omeprazole 40 MG 1 cap(s) orally once a day 08/09/2021 Active Farxiga 5 MG 1 tab(s) orally once a day Active MIRAPEX 0.25 MG 1/2 TAB QAM, 3 TABS QPM ORALLY; Duration: 90 DAYS Active Metoprolol Succinate ER 25 MG TAKE 1 TABLET BY MOUTH DAILY; Duration: 90 Active Clotrimazole 1 % 1 latia applied topica lly 2 times a day 02/14/2022 Active ProAir Digihaler 108 (90 Base) MCG/ACT 2 puff(s) inhaled 4 times a day; Duration: 90 days Active Breo Ellipta 100-25 MCG/ACT 1 puff(s) in haled once a day; Duration: 90 days Active Aspirin 81 MG 1 tab(s) orally once a day Active Brilinta 60 MG 1 tab(s) orally 2 ti mes a day Active metFORMIN HCl 1000 MG 1 tab(s) orally on ce daily; Duration: 90 days Active Immunizations Vaccine Route Administration Date Status Comme nts Fluzone High Dose (65yr and older) IM Intramuscular 07/22/2024 Administered Prevnar (PCV20) IM Intramuscular 07/22/2024 Administered Problems Problem Type SNOMED Code ICD Code Onset Dates Problem Status W/U Status Risk Notes Problem History of polyp of colon (situation) (182730452) Hx of colonic polyps (Z86.010) Active confirmed Vital Signs Blood pressure systolic 92 mm Hg 07/22/20 24 Blood pressure diastolic 50 mm Hg 024 Heart Rate 66 /min 07/22/2024 Height 68 in 07/22/2024 Weight 223 lbs 07/22/2024 BMI 33.90 kg/m2 07/22/2024 Encounters Encounter Location Date Provider Diagnosis [facility] [address] [place] [id number] 07/22/2024 Nathanael Barrientos Type 2 diabetes sidney itus E11.9 ; Diabetic peripheral neuropathy E11.42 ; Hyperlipidemia, unspecified hyperlipidemia type E78.5 ; Essential hypertension I10 ; Gastroesophageal reflux disease, esophagitis presence not specified K21.9 ; Prostate cancer screening Z12.5 ; Colon cancer screening Z12.11 and Hx of colonic polyps Z86.010 Assessments Encounter Date Diagnosis (ICD Code) Assessment Notes Treatment Notes Treatment Clinical Notes Section Notes 07/22/2024 Type 2 diabetes mellitus (ICD-10 - E11.9) 07/22/2024 Diabetic peripheral neuropathy (ICD-10 - E11.42) 07/22/2024 Hyperlipidemia, unspecified hyperlipidemia type (ICD-10 - E78.5) 07/22/2024 Essential hypertension (ICD-10 - I10) 07/22/2024 Gastroesophageal reflux disease, esophagitis presence not specified (ICD-10 - K21.9) 07/22/2024 Prostate cancer screening (ICD-10 - Z12.5) 07/22/2024 Colon cancer screening (ICD-10 - Z12.11) 07/22/2024 Hx of colonic polyps (ICD-10 - Z86.010) Plan Of Treatment Pending Test Test Name Order Date colonoscopy 07/22/2024 Next Appt Details Follow Up: 6 Months, Reason: Progress Notes * PEGGY WALLACE JRDOB: 8 (64 yo M)Acc No.[id number]:07/22/2024 Progress Notes Patient: Etelvina MITRADEAN PEGGY BRO Provider: Evens Barrientos M.D. :1960 A ge:63 Y S ex:Male Date:07/22/2024 Address:[address] [place], [id number] Subjective: * Chief Complaints: * 1 . 6 months. * HPI: C ardiology: 63 year old male presents with c/o Blood Pressure Elevated P t here for 6 mo f/u on hyperternsion, states he is doing well and does not have any concerns. c/o Hyperlipidemia P t is fasting today. E ndocrinology: c/o Recent Blood Sugars P t here to f/u on DM 2, pt states he does not check blood sugar at home regularly but when he does it is 200-300. * ROS: D ERMATOLOGY: no R david. n o H jung. G ASTROENTEROLOGY: no N ausea. n o V omiting. U ROLOGY: no D ifficulty urinating. n o B lood in urine. * Medical History: D [place], Type 2 DM, Asthma, ASCVD, Hyperlipidemia, Restless leg syndrome, Right wrist fracture 11/08, [facility], Colonoscopy 2015 - one polyp, Declines pneumonia vaccine - 04/2018, Lumbar Disc Disease, Lumbar facet arthropathy, Lumbar Spinal Stenosis, MRI April 2020, Cardiac cath with stent placed 08/2019. * Surgical History: L umbar disc x 3 , Arthroscopy rt leg , rotator cuff tear repair lt 04/20/2015, [facility]- lumbar microdiscectomy 07/27/2020. * Hospitalization/Major Diagno stic Procedure: D [place] , [facility] 07/05/2016. * Family History: F ather: . M other: . 1 son(s) , 2 daughter(s) . . * Social History: C URRENT TOBACCO USE S moking Status: Patient does NOT smoke, Former Smoker: Yes, Quit smokin. C affeine: yes, frequency: occasionally. Home smoke detector use: yes. Marital Status: . Past smoking status: no, Smoking status: Does not smoke, Former Smoker: Yes, Quit smokinyrs ago, Smoking pack year history: 1. Alcohol: No. Sexually active: yes. * Medications: T aking Brilinta 60 MG Tablet 1 tab(s) orally 2 times a day , Taking Aspirin 81 MG Tablet Delayed Release 1 tab(s) orally once a day , Taking Breo Ellipta 100-25 MCG/ACT Aerosol Powder Breath Activated 1 puff(s) inhaled once a day , Taking ProAir Digihaler 108 (90 Base) MCG/ACT Aerosol Powder Breath Activated 2 puff(s) inhaled 4 times a day , Taking Clotrimazole 1 % Cream 1 latia applied topically 2 times a day , Taking Metoprolol Succinate ER 25 MG Tablet Extended Release 24 Hour TAKE 1 TABLET BY MOUTH DAILY , Taking MIRAPEX 0.25 MG TABLET 1/2 TAB QAM, 3 TABS QPM ORALLY , Taking Farxiga 5 MG Tablet 1 tab(s) orally once a day , Taking Omeprazole 40 MG Capsule Delayed Release 1 cap(s) orally once a day , Taking Lipitor 80 MG Tablet 1 tab(s) orally once a day (at bedtime) , Taking Gabapentin 300 MG Capsule 2 cap(s) orally 2 times a day , Taking Tamsulosin HCl 0.4 MG Capsule 1 cap(s) orally once a day , Taking Glimepiride 4 MG Tablet 1 tabs orally once a day , Taking Sulindac 200 MG Tablet 1 tab(s) orally 2 times a day , Taking metFORMIN HCl 1000 MG Tablet 1 tab(s) orally once daily , Discontinued Paxil 40 MG Tablet 1 tab(s) orally once daily , Medication List reviewed and reconciled with the patient * Allergies: T olmetin, Morphine. Objective: * Vitals: W t:223, Temp:98.0, BP:92/50, HR:66, O2 Sat:97% on RA, Nurse:rosa, Ht: 68, BMI:33.90. * Examination: E ndocrinology: General Appearance: N AD. H eart: R SR. L ungs:?clear to auscultation. E xtremities: n o leg edema. Assessment: * Assessment: 1. T ype 2 diabetes mellitus - E11.9 (Primary) 2 . D iabetic peripheral neuropathy - E11.42 3 . H yperlipidemia, unspecified hyperlipidemia type - E78.5? 4. E ssential hypertension - I10 5 . G astroesophageal reflux disease, esophagitis presence not specified - K21.9 6 . P rostate cancer screening - Z12.5 7 . C olon cancer screening - Z12.11 8 . H x of colonic polyps - Z86.010 Plan: * Treatment: Value Reference Range A /G Ratio 2.0 1.1-2.5 - * A lbumin 4.4 3.5-5.3 - g/dL * A lkaline Phosphatase 106 40-129 - IU/L * A LT (SGPT) 21 <5-55 - IU/L * A ST (SGOT) 18 <5-46 - IU/L * B ilirubin, Total 0.6 <0.2-1.2 - mg/dL * B UN 18 8-23 - mg/dL * C alcium 9.5 8.6-10.4 - mg/dL * C hloride 101 97-108 - mmol/L * C O2 28 22-32 - mmol/L * C reatinine 1.09 0.70-1.30 - mg/dL * G lucose 97 65-99 - mg/dL * P otassium 4.4 3.5-5.3 - mmol/L * S odium 140 135-145 - mmol/L * P rotein 6.6 6.0-8.3 - g/dL * e GFR by Creatinine 75 >59 - mL/min/1.73m2 * Raya Tena 07/23/2024 8:27: 02 AM >See phone encounter ?LAB: P-Microalbumin/Creatinine, Random Urine Sample (Collection Date & Time - 07/22/2024 09:00 AM)?Normal* Value Reference Range A lbumin/Creatinine Ratio, Urine 19 0-30 - ug /mg * C reatinine, Urine 16.0 - mg/dL * M icroalbumin, Urine, Random 0.3 - mg/dL * Raya Tena 07/23/2024 8:27: 02 AM >See phone encounter ?LAB: Glucose (In-House) (Collection Date & Time - 07/22/2024)?114* Value Reference Range b lood glucose 114 74 - 106 mg/dL * Marina Wright 07/22/2024 10:55:0 9 AM > Raya Tena 07/23/2024 8:27:02 AM >See phone encounter ?LAB: Glycohemoglobin A1c (in house) (Collection Date & Time - 07/22/2024)? 7.7* Value Reference Range g lycohemoglobin 7.7% 5 - 6.5 % * Marina Wright 07/22/2024 10:55:2 5 AM > Raya Tena 07/23/2024 8:27:02 AM >See phone encounter 2.?Hyperlipidemia, unspecified hyperlipidemia type?LAB: P-Comprehensive Metabolic Panel (CMP) (Collection Date & Time - 07/22/2024 09:00 AM)?Normal* Value Reference Range A /G Ratio 2.0 1.1-2.5 - * A lbumin 4.4 3.5-5.3 - g/dL * A lkaline Phosphatase 106 40-129 - IU/L * A LT (SGPT) 21 <5-55 - IU/L * A ST (SGOT) 18 <5-46 - IU/L * B ilirubin, Total 0.6 <0.2-1.2 - mg/dL * B UN 18 8-23 - mg/dL * C alcium 9.5 8.6-10.4 - mg/dL * C hloride 101 97-108 - mmol/L * C O2 28 22-32 - mmol/L * C reatinine 1.09 0.70-1.30 - mg/dL * G lucose 97 65-99 - mg/dL * P otassium 4.4 3.5-5.3 - mmol/L * S odium 140 135-145 - mmol/L * P rotein 6.6 6.0-8.3 - g/dL * e GFR by Creatinine 75 >59 - mL/min/1.73m2 * Raya Tena 07/23/2024 8:27: 02 AM >See phone encounter ?LAB: P-Lipid Panel (Collection Date & Time - 07/22/2024 09:00 AM)?hdl 39, non-hdl 138* Value Reference Range C holesterol / HDL Ratio 4.54 0.00-4.99 - Ratio * C holesterol 177 <200 - mg/dL * H DL Cholesterol 39 L >39 - mg/dL * L DL Cholesterol (Calculation) 116 <130 - mg/d L * L DL/HDL Ratio 3.0 <3.3 - Ratio * N on-HDL Cholesterol 138 H <130 - mg/dL * T riglycerides 110 <150 - mg/dL * Raya Tena 07/23/2024 8:27: 02 AM >See phone encounter ?LAB: P-TSH reflex to FT4 (Collection Date & Time - 07/22/2024 09:00 AM)? Normal* Value Reference Range T SH reflex to FT4 2.29 0.43-5.25 - mU/L * Raya Tena 07/23/2024 8:27: 02 AM >See phone encounter 3.?Essential hypertension?LAB: P-Comprehensive Metabolic Panel (CMP) (Collection Date & Time - 07/22/2024 09:00 AM)?Normal* Value Reference Range A /G Ratio 2.0 1.1-2.5 - * A lbumin 4.4 3.5-5.3 - g/dL * A lkaline Phosphatase 106 40-129 - IU/L * A LT (SGPT) 21 <5-55 - IU/L * A ST (SGOT) 18 <5-46 - IU/L * B ilirubin, Total 0.6 <0.2-1.2 - mg/dL * B UN 18 8-23 - mg/dL * C alcium 9.5 8.6-10.4 - mg/dL * C hloride 101 97-108 - mmol/L * C O2 28 22-32 - mmol/L * C reatinine 1.09 0.70-1.30 - mg/dL * G lucose 97 65-99 - mg/dL * P otassium 4.4 3.5-5.3 - mmol/L * S odium 140 135-145 - mmol/L * P rotein 6.6 6.0-8.3 - g/dL * e GFR by Creatinine 75 >59 - mL/min/1.73m2 * MallikaRaya 07/23/2024 8:27: 02 AM >See phone encounter 4.?Prostate cancer screening?LAB: P-PSA (Collection Date & Time - 07/22/2024 09:00 AM)?Normal* Value Reference Range P SA 3.07 <4.00 - ng/mL * Raya Tena 07/23/2024 8:27: 02 AM >See phone encounter 5.?Colon cancer screening?Imaging: colonoscopy* Jennifer Avila 07/22/2024 10:0 7:34 AM > order faxed to Dr Middleton 6.?Hx of colonic polyps?Imaging: colonoscopy* Jennifer Avila 07/22/2024 10:0 7:34 AM > order faxed to Dr Middleton * Immunizations: Fluzone High Dose (65yr and older) : 0.7 mL (Route: Intramuscular) given by Marina Wright on Right Deltoid Prevnar (PCV20) : 0.5 mL (Route: Intramuscular) given by Marina Wright on Left Deltoid * Procedure Codes: G 2211 Complex e/[place], [address] GLUCOSE TEST, 18110 GLYCATED HEMOGLOBIN TEST, Modifiers: QW * Follow Up: 6 Months * Images: Billing Information: * Visit Code: 71780 Office Visit, Est Pt., Level 4. * Procedure Codes: G2211 Complex e/[place]. [address] GLU[place]SE [place]. 38004 GLYCATED HEMOGLOBIN TEST. Modifiers: QW * Electronic signature of Becky Barrientos MD on 09/01/2025 at 07:25 AM EDT Sign off status: Pending * Provider: Evens Barrientos M.D. Date: 0 07/22/2024 Generated for Josselyn christopher/Maurice/Trungsmitting on: 1 07:25 AM EDT History and Physical Notes * HPI (History of Present Illness) Category Sub-Category Detail Notes Category Not es Endocrinology Recent Blood Sugars Pt here to f /u on DM 2, pt states he does not check blood sugar at home regularly but when he does it is 200-300 Cardiology Blood Pressure Elevated Pt here for 6 mo f/u on hyperternsion, states he is doing well and does not have any concerns Hyperlipidemia Pt is fasting today Examination Category Sub-Category Detail Notes Category Not es Endocrinology Heart: RSR Lungs: clear to auscultatio n Extremities: no leg edema General Appearance: NAD
--- OUTSIDE RECORDS SUMMARY | 2025-01-20 05:45 | XMS_ITS ---
Author Organization [facility] Address [address] [facility] [address] [place] [id number] Care Team Providers Care Certified Orthoptist Name Role Phone Nathanael Barrientos Primary Care Provider [phone] NATHANAEL BARRIENTOS Unavailable Unavailable Allergies Allergen (clinical drug ingredient) Drug/Non Drug Allergy documented on EMR Reaction Allergy Type Onset Date Status morphine Morphine Unknown Drug Allergy Active tolmetin Tolmetin Unknown Drug Allergy Active REASON FOR VISIT 6 months Encounters Encounter Location Date Provider Diagnosis [facility] [address] [facility] [address] [place] [phone] 01/20/2025 Nathanael Barrientos Plan Of Treatment No Information Progress Notes * PEGGY WALLACE JRDOB: 8 (64 yo M)Acc No.[id number]:01/20/2025 Progress Notes Patient: Etelvina GALEANO PEGGY BRO Provider: Evens Barrientos M.D. :1960 A ge:64 Y S ex:Male Date:01/20/2025 Address:[address] [place], [id number] Subjective: * Chief Complaints: * 1 . 6 months. * HPI: C ardiology: 64 year old male presents with c/o Blood Pressure Elevated P t here for 6 mo f/u on hypertension, states he is doing well and does not have any concerns. c/o Hyperlipidemia P t is fasting today. E ndocrinology: c/o Recent Blood Sugars P t here to f/u on DM 2. * Medical History: D [place], Type 2 DM, Asthma, ASCVD, Hyperlipidemia, Restless leg syndrome, Right wrist fracture 11/08, [facility], Colonoscopy 2016 - one polyp, Declines pneumonia vaccine - 04/2018, Lumbar Disc Disease, Lumbar facet arthropathy, Lumbar Spinal Stenosis, MRI April 2020, Cardiac cath with stent placed 08/2019. * Surgical History: L umbar disc x 3 , Arthroscopy rt leg , rotator cuff tear repair lt 04/20/2015, [facility]- lumbar microdiscectomy 07/27/2020. * Hospitalization/Major Diagno stic Procedure: D [place] , [facility] 07/05/2016. * Family History: F ather: [...] 1. Alcohol: No. Sexually active: yes. * Allergies: T olmetin, Morphine. Objective: * Vitals: Assessment: Plan: * Treatment: * Images: Billing Information: * Visit Code: * Procedure Codes: * Electronic signature of Becky Barrientos MD on 09/01/2025 at 07:25 AM EDT Sign off status: Pending * Provider: Evens Barrientos M.D. Date: 0 01/20/2025 Generated for Josselyn christopher/Maurice/eTtomsmitting on: 1 07:25 AM EDT History and Physical Notes * HPI (History of Present Illness) Category Sub-Category Detail Notes Category Not es Endocrinology Recent Blood Sugars Pt here to f/u on DM 2 Cardiology Blood Pressure Elevated Pt here for 6 mo f/u on hypertension, states he is doing well and does not have any concerns Hyperlipidemia Pt is fasting today
--- OUTSIDE RECORDS SUMMARY | 2025-09-01 07:25 | XMS_ITS | Clinical Summary ---
Author Organization [facility] Address [address] [place] [address] Phone Care Team Providers Care Actuarial Manager Name Role Phone Dee Lao Primary Care Provider [phone] Allergies Active Allergy Reactions Criticality Noted Date [...] EDT) 03/14/2016 9:30 AM EDT Impressions [facility] - 03/14/2016 9:59 AM EDT Polyp (4 mm) in the rectum. (Polypectomy). Plan: Colonoscopy in 5 years due to previous history of polyps. Follow-up with referring provider / physician This section is an excerpt of the full report. Adonis Ballard MD GI PROCEDURE ORDERABLES Fin al Result [facility] [address] [place] [address] from Last 3 Months or Most Recently Relevant to Health Maintenance Insurance [place] Care Teams Actuarial Manager Relationship Specialty Start Date End Date Dee Lao [address] [place] [address] [address] [place] [address] PCP - General Family Medicine 03/14/16
--- OUTSIDE RECORDS SUMMARY | 2025-09-01 07:25 | XMS_ITS | Patient Health Record ---
[facility] [address] [facility] [address] [place] [id number] Care Team Providers Care Porcelain Enamel Laborer Name Role Phone Nathanael Barrientos Primary Care Provider [phone] NATHANAEL BARRIENTOS Unavailable Unavailable Allergies Allergen (clinical [...] Status W/U Status Risk Notes Problem Gout (48429464) Gout NOS (274.9) Active confirm ed Problem Low back pain (136534465) Low back pain (724.2) Active confirmed Problem Coronary arteriosclerosis (11341675) ASCVD (arteriosclerotic cardiovascular disease) (I25.10) Active confirmed Problem Type 2 diabetes mellitus (26854370) Type 2 diabetes mellitus (E11.9) Active confirmed Problem COPD - Chronic obstructive pulmonary disease (68769199) COPD (chronic obstructive pulmonary disease) (J44.9) Active confirmed Problem Essential hypertension (49735665) Essential hypertension (I10) Active confirmed Problem Acute exacerbation of chronic obstructive airways disease (484598654) COPD with exacerbation (J44.1) Active confirmed Problem Restless legs syndrome (21932315) Restless leg syndrome (G25.81) Active confirmed Problem Chronic pain (66738147) Other chronic pain (G89.29) Active confirmed Problem Sciatica (35826920) Lumbago with sciatica, left side (M54.42) Active confirmed Problem Balanitis (16061419) Balanitis (N48.1) Active confirmed Problem Depressive disorder (28452061) Depressive disorder (F32.9) Active confirmed Problem History of polyp of colon (situation) (974351605) Hx of colonic polyps (Z86.010) Active confirmed Problem History of placement of stent for coronary artery disease (situation) (975599809) History of heart artery stent (Z95.5) Active confirmed Problem COPD - Chronic obstructive pulmonary disease (04049839) Chronic obstructive pulmonary disease, unspecified COPD type (J44.9) Active confirmed Problem Gastroesophageal reflux disease (438857343) Gastroesophageal reflux disease, esophagitis presence not specified (K21.9) Active confirmed Problem Obstructive sleep apnea syndrome (08042237) BUCK (obstructive sleep apnea) (G47.33) Active confirmed Problem Hyperlipidaemia (63611320) Hyperlipidemia, unspecified hyperlipidemia type (E78.5) Active confirmed Problem Anginal equivalent (935169027636551358 ) Anginal equivalent (I20.8) Active confirmed Problem Diabetic peripheral neuropathy (862091751) Diabetic peripheral neuropathy (E11.42) Active confirmed Problem Obese class II (024450499043710) BMI 37.0-37.9, adult (Z68.37) Active confirmed Problem Type II diabetes mellitus without complication (100293818) Type 2 diabetes mellitus without complication, without long-term current use of insulin (E11.9) Active confirmed Problem Solitary nodule of lung (761270275) Lung nodule < 6cm on CT (R91.1) Active confirmed Problem Hyperglycemia due to type 2 diabetes mellitus (563621793257608) Uncontrolled type 2 diabetes mellitus with hyperglycemia (E11.65) Active confirmed Encounters Encounter Location Date Provider Diagnosis [facility] [address] [facility] [address] [place] [id number] 05/28/2025 Nathanael Barrientos Plan Of Treatment Pending [...] End Date [employer] MED[employer]ARE [address] [place] [address] [id number] PEGGY WALLACE JR Self - patient is the insured [facility] MEDICARE [address] [place] [address] [id number] PEGGY WALLACE JR Self - patient is [...] leg rotator cuff tear repair lt 04/20/2015 [facility]- lumbar microdiscectomy 07/27/2020 Hospitalization History Reason Date(Month/Year) DVT H ER 07/05/2016
--- OUTSIDE RECORDS SUMMARY | 2025-09-01 07:26 | XMS_ITS | Encounter Summary ---
Author Organization [place] [address] Care Team Providers Care Chair And Couch Maker Name Role Phone Dee Lao Primary Care Provider [phone] Encounter Details Date Type Department Care Team (Late st Contact Info) Description 03/14/2016 Orders Only SEP Gastro [facility] [address] [facility] [address] [place] [address] Adonis Ballard MD [address] [place] [address] Social History Tobacco Use Types Packs/Day Years [...] AM EDT) 03/14/2016 9:30 AM EDT Impressions [facility] - 03/14/2016 9:59 AM EDT Polyp (4 mm) in the rectum. (Polypectomy). Plan: Colonoscopy in 5 years due to previous history of polyps. Follow-up with referring provider / physician This section is an excerpt of the full report. us Adonis Ballard MD GI PROCEDURE ORDERABLES Fin al Result [facility] [address] [place] [address] documented in this encounter Visit Diagnoses Not on filedocumented in this encounter Care Teams Chair And Couch Maker Relationship Specialty Start Date End Date Dee Lao [address] [place] [address] PCP - General Family Medicine 03/14/16 documented as of this encounter
--- NOTE | 2025-09-01 07:30 | CT_ITS ---
FINAL REPORT TECHNIQUE: Axial CT images of the chest were obtained without contrast. Low-dose protocol was utilized. This study was performed with techniques to keep radiation doses as low as reasonably achievable (ALARA). Individualized dose reduction techniques using automated exposure control or adjustment of mA and/or kV according to the patient's size were employed. CLINICAL HISTORY: lung cancer screening former smoker, quit 34 yrs ago, would smoke 1 ppd COMPARISON: CT chest 03/24/[address] chest 08/01/2018 FINDINGS: CT CHEST WITHOUT, LOW DOSE SCREENING CT Di Vol: 2.90 mGy DLP: 105.77 mGy*cm There are mildly calcified right paratracheal and right hilar lymph nodes. The heart size is normal. There is no pleural or pericardial effusion. The lung windows show a stable 7 mm nodule in the periphery of the right lower lobe, slightly lobular in appearance and well seen on image 48 of series 4.. Limited images of the upper abdomen demonstrate no acute findings. IMPRESSION: Right lower lobe nodule stable to 2018. LR Category 1: 12 month follow-up low-dose chest CT is recommended per Fleischner criteria. Reviewed, Interpreted and Dictated by Chuck Joe MD Transcribed by Kenna Garcia Authenticated and . [facility]
== END 2025-09-01 23:59 | disposition home or self-care (01) ==
PROVIDERS: PCP Nurse Practitioner; Visit Provider Nurse Practitioner
DX: R91.1 Solitary pulmonary nodule (principal); Z87.891 Personal history of nicotine dependence; Z12.2 Encounter for screening for malignant neoplasm of respiratory organs
CPT/HCPCS: 71271